=== PATIENT | female | born 1970 | race Caucasian/White ===

== ENCOUNTER 2016-05-06 20:29 | Emergency (ER) | payer SELFPAY ==
[~2016-05-06] VITALS: Ht 167.6 cm; Wt 74.8 kg
[~2016-05-06 20:29] MED LIST: ADVIL200 M2 ORAL; ALBUTEROL2.5 MG/3 M HHN; ALPRAZOLAM0.25 MG ORAL; IBUPROFEN600 MG ORAL; LEVAQUIN750 MG ORAL; NKM; NORCO 5-325 TA1 EACH ORAL; PERCOCET1 TAB ORAL; PROAIR HFA8.5 GM INH; PROMETHAZINE V237 ML ORAL; REGLAN10 MG ORAL; ROBITUSSIN100 MG/52 ORAL
[2016-05-06 21:17] VITALS: BP 142/87
[2016-05-06 21:52] VITALS: BP 142/87
--- NOTE | 2016-05-06 22:56 | Emergency Room Report ---
History of Present Illness General Chief Complaint: Chest Pain Source: Patient Present Illness HPI 45-year-old female presents ED complaining of chest pain or shortness of breath x3 days. Patient states she feels short of breath while at rest. Denies any chest pain at this time. Denies any history of high blood pressure diabetes. Denies smoking. Denies any cough. Patient has sensations in her lips and her hands. Denies any slurred speech or facial droop. Denies any leg or motor weakness. Patient states that she did have breast implant surgery done at another hospital and is feeling pain in her left lung. No other aggravating or relieving factors. Denies any other associated symptoms Allergies: Coded Allergies: PENICILLINS (Verified Allergy, Intermediate, TACHYCARDIA, 03/30/16) Patient History Past Medical History: asthma Past Surgical History: other - breast implants Pertinent Family History: none Social History: Denies: alcohol use, drug use, smoking Now: No Immunizations: UTD Reviewed Nursing Documentation: PMH: Agreed, PSxH: Agreed Nursing Documentation-PMH Past Medical History: No Stated History Hx Cardiac Problems: No - PNA Hx Asthma: Yes Review of Systems All Other Systems: negative except mentioned in HPI Physical Exam Vital Signs Date Time Temp Pulse Resp B/P Pulse Ox O2 Delivery O2 Flow Rate FiO2 05/06/16 20:38 98.1 83 15 145/90 98 Room Air Sp02 EP Interpretation: reviewed, normal General Appearance: no apparent distress, alert, GCS 15, non-toxic Head: normocephalic, atraumatic Eyes: bilateral eye PERRL, bilateral eye normal inspection ENT: hearing grossly normal, normal pharynx, no angioedema, normal voice Neck: full range of motion, supple/symm/no masses Respiratory: chest non-tender, lungs clear, normal breath sounds, speaking full sentences Cardiovascular #1: regular rate, rhythm, no edema Cardiovascular #2: 2+ carotid (R), 2+ carotid (L), 2+ radial (R), 2+ radial (L) , 2+ dorsalis pedis (R), 2+ dorsalis pedis (L) Gastrointestinal: normal bowel sounds, non tender, soft, non-distended, no guarding, no rebound Rectal: deferred Genitourinary: normal inspection, no CVA tenderness Musculoskeletal: back normal, gait/station normal, normal range of motion, non- tender Neurologic: alert, oriented x3, responsive, motor strength/tone normal, sensory intact, speech normal Psychiatric: judgement/insight normal, memory normal, mood/affect normal, no suicidal/homicidal ideation Reflexes: 3+ bicep (R), 3+ bicep (L), 3+ tricep (R), 3+ tricep (L), 3+ knee (R) , 3+ knee (L) Skin: normal color, no rash, warm/dry, well hydrated Lymphatic: no adenopathy Medical Decision Making Diagnostic Impression: Primary Impression: Chest pain Qualified Codes: R07.9 - Chest pain, unspecified Additional Impression: Anxiety attack ER Course 45-year-old female presents ED complaining of subjective chest pain or shortness of breath x3 days Differential-pneumonia, arrhythmia, anxiety Patient placed on stretcher. After initial history and physical I ordered chest x-ray and EKG Chest x-ray-no acute process EKG-no acute ischemic changes Patient is stable vitals, oxygenation 100% on room air. No signs of distress on evaluation. Reassurance given to the patient. Patient has been here previously times in the past but has history of anxiety. I evaluated this patient in the past as well. Patient always presents with multiple vague complaints. Patient has no risk factors which are concerning for cardiac disease Explained to patient that if she is having trouble with silicon implants from her surgery she should followup with her surgeon as outpatient. Diagnosis-chest pain, anxiety attack stable and discharged to home. Followup with PMD. Return to ED if symptoms recur or worsen EKG Diagnostic Results Rate: normal Rhythm: NSR ST Segments: no acute changes ASA given to the pt in ED: No Rhythm Strip Diag. Results EP Interpretation: yes Rhythm: NSR, no PVC's, no ectopy Chest X-Ray Diagnostic Results EP Interpretation: Yes Findings: no consolidation, no effusion, no pneumothorax, no acute cardiopulmonary disease Number of Views: 1 Last Vital Signs Date Time Temp Pulse Resp B/P Pulse Ox O2 Delivery O2 Flow Rate FiO2 05/06/16 21:52 98.0 14 142/87 98 Room Air 05/06/16 21:51 86 Status: improved Disposition: HOME, SELF-CARE Condition: Stable Referrals: NOT CHOSEN IPA/,REFERRING (PCP) Patient Instructions: Nonspecific Chest Pain CHUY WALTERS M.D. May 06, 2016 22:56
--- NOTE | 2016-05-07 12:50 | Diagnostic Imaging Report ---
Indication: Chest pain Technique: One view of the chest Comparison: 07/09/2014 Findings: Lungs and pleural space are clear. Heart size is normal Impression: Negative This agrees with the preliminary interpretation provided by the emergency room physician
--- NOTE | 2016-05-11 20:27 | Cardiology Report ---
APPROVED REPORT EKG Measurement Heart [id number] Normal sinus rhythm Low voltage QRS Cannot rule out Anterior infarct, age undetermined Abnormal ECG
== END 2016-05-06 21:53 | disposition home or self-care (01) ==
LOC: EMR 21:19
DX: R07.9 Chest pain, unspecified (principal); F41.9 Anxiety disorder, unspecified; J45.909 Unspecified asthma, uncomplicated; Z88.0 Allergy status to penicillin
CPT/HCPCS: 71010; 93005; 99283

== ENCOUNTER 2016-07-27 22:01 | Emergency (ER) | payer MEDICAID ==
[~2016-07-27] VITALS: Ht 154.9 cm; Wt 59.0 kg
[2016-07-27 22:20] VITALS: BP 137/86
[2016-07-27] MEDS ORDERED: ATIVAN1 MG ORAL (22:27)
--- NOTE | 2016-07-27 22:27 | Emergency Room Report ---
History of Present Illness General Chief Complaint: General Complaint Source: Patient, Family Member Present Illness HPI This is a 45-year-old female with history anxiety. She presents with chief complaint of chest pain facial numbness body numbness. Onset tonight. She found out that her mom just this afternoon. She's been crying. No fever or chills. No nausea vomiting. Has shortness of breath. No other complaint. Allergies: Coded Allergies: PENICILLINS (Verified Allergy, Intermediate, TACHYCARDIA, 03/30/16) Patient History Past Medical History: see triage record, old chart reviewed Past Surgical History: other Pertinent Family History: none Social History: Denies: smoking Last Menstrual Period: Menopause Now: No Immunizations: other Reviewed Nursing Documentation: PMH: Agreed, PSxH: Agreed Nursing Documentation-PMH Past Medical History: No History, Except For Hx Cardiac Problems: No - PNA Hx Asthma: Yes Review of Systems Eye: Denies: blurred vision, eye pain ENT: Denies: ear pain, nose congestion, throat swelling Respiratory: Reports: shortness of breath, Denies: cough Cardiovascular: Reports: chest pain, Denies: palpitations Gastrointestinal: Denies: abdominal pain, diarrhea, nausea, vomiting Musculoskeletal: Denies: back pain, joint pain Skin: Denies: rash Neurological: Denies: headache, numbness Endocrine: Denies: increased thirst, increased urine Hematologic/Lymphatic: Denies: easy bruising All Other Systems: negative except mentioned in HPI Physical Exam Vital Signs Date Time Temp Pulse Resp B/P Pulse Ox O2 Delivery O2 Flow Rate FiO2 07/27/16 22:09 97.9 109 19 137/86 100 Room Air vital is unremarkable Sp02 EP Interpretation: reviewed, normal General Appearance: well appearing, alert, other - Crying Head: normocephalic, atraumatic Eyes: bilateral eye EOMI, bilateral eye PERRL ENT: hearing grossly normal, normal pharynx Neck: full range of motion, supple, no meningismus Respiratory: chest non-tender, lungs clear, normal breath sounds Cardiovascular #1: regular rate, rhythm, no murmur Gastrointestinal: normal bowel sounds, non tender, no mass, no organomegaly, no bruit, non-distended Musculoskeletal: back normal, gait/station normal, normal range of motion Psychiatric: mood/affect normal Skin: warm/dry Medical Decision Making Diagnostic Impression: Primary Impression: Anxiety attack Additional Impression: Acute stress reaction ER Course Patient presents with symptoms of acute anxiety/stress response. No evidence of ACS, PE, dissection. We'll discharge home. Better after Ativan. Last Vital Signs Date Time Temp Pulse Resp B/P Pulse Ox O2 Delivery O2 Flow Rate FiO2 07/27/16 22:20 97.9 89 19 137/86 100 Room Air Status: improved Disposition: HOME, SELF-CARE Condition: Stable Scripts Lorazepam* (ATIVAN*) 1 Mg Tablet 1 MG ORAL THREE TIMES A DAY for stress, #21 TAB Prov: KATELYN VELÁZQUEZ M.D. 07/27/16 Additional Instructions: Followup with your Dr. in 7 days. Return if symptom worsen. KATELYN VELÁZQUEZ M.D. Jul 27, 2016 22:27
[2016-07-27] MEDS ORDERED: LORazepam Inj 2mg/ml 1ml IM ONE (22:30)
[2016-07-27 22:50] VITALS: BP 137/86
== END 2016-07-27 22:50 | disposition home or self-care (01) ==
LOC: EMR 22:29
DX: F41.9 Anxiety disorder, unspecified (principal); F43.9 Reaction to severe stress, unspecified; J45.909 Unspecified asthma, uncomplicated; Z88.0 Allergy status to penicillin
CPT/HCPCS: 96372; 99283

== ENCOUNTER 2016-10-14 20:40 | Inpatient (IN) | payer MEDICAID ==
[~2016-10-14] VITALS: Ht 154.9 cm; Wt 65.8 kg
[~2016-10-14 20:40] MED LIST changes: +ATIVAN1 MG ORAL
[2016-10-14] MEDS ORDERED: Morphine Sulfate 4mg/ml Inj IVP ONE (21:30)
[2016-10-14 22:02] LABS: EOSINOPHILS % (AUTO) 1.2 % (0.0-3.0); LYMPHOCYTES % (AUTO) 38.4 % (20.0-45.0); MEAN CORPUSCULAR HEMOGLOBIN 31.6 PG (27.0-31.0); MEAN CORPUSCULAR HGB CONC 32.9 G/DL (32.0-36.0); MEAN CORPUSCULAR VOLUME 96 FL (80-99); MEAN PLATELET VOLUME 5.5 FL (6.5-10.1); MONOCYTES % (AUTO) 9.6 % (1.0-10.0); NEUTROPHILS % (AUTO) 49.7 % (45.0-75.0); PLATELET COUNT 327 K/UL (150-450); RED BLOOD COUNT 4.59 M/UL (4.20-5.40); RED CELL DISTRIBUTION WIDTH 12.3 % (11.6-14.8)
[2016-10-14 22:20] LABS: ALANINE AMINOTRANSFERASE 15 U/L (3-33); ALBUMIN/GLOBULIN RATIO 1.4 (1.0-2.7); ANION GAP 9 (5-15); ASPARTATE AMINO TRANSFERASE 18 U/L (5-40); CARBON DIOXIDE 30 mEQ/L (20-30); CHLORIDE 100 mEQ/L (98-107); CREATININE 0.8 mg/dL (0.5-0.9); GLOMERULAR FILTRATION RATE > 60 mL/min (>60); HEMOLYSIS 8; LIPASE 27 U/L (< 60); POTASSIUM 4.1 mEQ/L (3.4-4.9); SODIUM 139 mEQ/L (135-145); TOTAL PROTEIN 6.8 g/dL (6.6-8.7)
[2016-10-15] VITALS (13 sets, daily range): BP systolic 106–149; BP diastolic 66–87
[2016-10-15] MEDS ORDERED: Morphine Sulfate 4mg/ml Inj IVP PRN (02:15)
--- NOTE | 2016-10-15 02:27 | Emergency Room Report ---
History of Present Illness General Chief Complaint: Abdominal Pain Source: Patient Present Illness HPI 46-year-old female presents ED complaining of abdominal pain. The pain for last 3 days, periumbilical radiating to right lower quadrant. 8/10. Sharp. Notes nausea, denies vomiting. Denies chest pain or shortness of breath. Denies fevers or chills. No other aggravating or relieving factors. Denies any other associated symptoms Allergies: Coded Allergies: PENICILLINS (Verified Allergy, Intermediate, TACHYCARDIA, 03/30/16) Patient History Past Medical History: asthma Past Surgical History: none Pertinent Family History: none Social History: Denies: alcohol use, drug use, smoking Last Menstrual Period: feb 2016 Now: No Immunizations: UTD Reviewed Nursing Documentation: PMH: Agreed, PSxH: Agreed Nursing Documentation-PMH Past Medical History: No Stated History Hx Cardiac Problems: No - PNA Hx Asthma: Yes Review of Systems All Other Systems: negative except mentioned in HPI Physical Exam Vital Signs Date Time Temp Pulse Resp B/P Pulse Ox O2 Delivery O2 Flow Rate FiO2 10/14/16 21:05 98.1 75 18 120/76 97 Room Air Sp02 EP Interpretation: reviewed, normal General Appearance: no apparent distress, alert, GCS 15, non-toxic Head: normocephalic, atraumatic Eyes: bilateral eye PERRL, bilateral eye normal inspection ENT: hearing grossly normal, normal pharynx, no angioedema, normal voice Neck: full range of motion, supple/symm/no masses Respiratory: chest non-tender, lungs clear, normal breath sounds, speaking full sentences Cardiovascular #1: regular rate, rhythm, no edema Cardiovascular #2: 2+ carotid (R), 2+ carotid (L), 2+ radial (R), 2+ radial (L) , 2+ dorsalis pedis (R), 2+ dorsalis pedis (L) Gastrointestinal: normal bowel sounds, soft, non-distended, no guarding, no rebound, tenderness - RLQ Rectal: deferred Genitourinary: normal inspection, no CVA tenderness Musculoskeletal: back normal, gait/station normal, normal range of motion, non- tender Neurologic: alert, oriented x3, responsive, motor strength/tone normal, sensory intact, speech normal Psychiatric: judgement/insight normal, memory normal, mood/affect normal, no suicidal/homicidal ideation Reflexes: 3+ bicep (R), 3+ bicep (L), 3+ tricep (R), 3+ tricep (L), 3+ knee (R) , 3+ knee (L) Skin: normal color, no rash, warm/dry, well hydrated Lymphatic: no adenopathy Medical Decision Making Diagnostic Impression: Primary Impression: Right lower quadrant abdominal pain ER Course Hospital Course 46-year-old female presents ED complaining of right lower quadrant pain with nausea Differential diagnoses include: BPH, cystitis, pyelonephritis, kidney stone Clinical course Patient placed on stretcher. teletypesetter monitor. After initial history and physical I ordered labs, IV fluids, UA, pain medication and CT scan Labs - no leukocytosis, Hb/Hct stable, electrolytes ok CT abdomen and pelvis - prominence of the appendix with haziness surrounding the appendix Given the CT findings with right lower quadrant pain I believe patient should be admitted for serial abdominal exams and reassessment Case discussed with Dr. Munoz and he agreed to consult Case discussed with Dr. Rivera and he agreed to accept the patient to his service for further care and support I feel this is a highly complex case requiring extensive working including EKG/ Rhythm strip, Xray/CT/US, Blood/urine lab work, repeat exams while in ED, and administration of strong opiates/narcotics for pain control, admission to hospital or close patient follow up. Diagnosis - right lower quadrant lower abdominal pain Patient admitted to floor in serious condition Labs Test 10/14/16 21:40 White Blood Count 9.0 K/UL (4.8-10.8) Red Blood Count 4.59 M/UL (4.20-5.40) Hemoglobin 14.5 G/DL (12.0-16.0) Hematocrit 44.0 % (37.0-47.0) Mean Corpuscular Volume 96 FL (80-99) Mean Corpuscular Hemoglobin 31.6 PG (27.0-31.0) Mean Corpuscular Hemoglobin Concent 32.9 G/DL (32.0-36.0) Red Cell Distribution Width 12.3 % (11.6-14.8) Platelet Count 327 K/UL (150-450) Mean Platelet Volume 5.5 FL (6.5-10.1) Neutrophils (%) (Auto) 49.7 % (45.0-75.0) Lymphocytes (%) (Auto) 38.4 % (20.0-45.0) Monocytes (%) (Auto) 9.6 % (1.0-10.0) Eosinophils (%) (Auto) 1.2 % (0.0-3.0) Basophils (%) (Auto) 1.0 % (0.0-2.0) Sodium Level 139 mEQ/L (135-145) Potassium Level 4.1 mEQ/L (3.4-4.9) Chloride Level 100 mEQ/L (98-107) Carbon Dioxide Level 30 mEQ/L (20-30) Anion Gap 9 (5-15) Blood Urea Nitrogen 15 mg/dL (7-23) Creatinine 0.8 mg/dL (0.5-0.9) Estimat Glomerular Filtration Rate > 60 mL/min (>60) Glucose Level 106 mg/dL (74-106) Calcium Level 9.0 mg/dL (8.6-10.2) Total Bilirubin < 0.2 mg/dL (0.0-1.2) Aspartate Amino Transf (AST/SGOT) 18 U/L (5-40) Alanine Aminotransferase (ALT/SGPT) 15 U/L (3-33) Alkaline Phosphatase 97 U/L (35-104) Total Protein 6.8 g/dL (6.6-8.7) Albumin 4.0 g/dL (3.5-5.2) Globulin 2.8 g/dL Albumin/Globulin Ratio 1.4 (1.0-2.7) Lipase 27 U/L (< 60) Human Chorionic Gonadotropin, Qual Negative CT/MRI/US Diagnostic Results CT/MRI/US Diagnostic Results : Imaging Test Ordered: CT A/P Impression The appendix demonstrates mild prominence as compared to prior examination from 10/27/12 and there is questionable lilia- appendiceal haziness Last Vital Signs Date Time Temp Pulse Resp B/P Pulse Ox O2 Delivery O2 Flow Rate FiO2 10/14/16 21:05 98.1 75 18 120/76 97 Room Air Status: improved Disposition: ADMITTED INPATIENT Condition: Serious Referrals: NOT CHOSEN NGA/,REFERRING (PCP) CHUY WALTERS M.D. Oct 15, 2016 02:27
[2016-10-15] MEDS ORDERED: mylanta (02:32)
[2016-10-15] MEDS ORDERED: Nitroglycerin Subl 0.4mg tab (Bottle Of 25) SL PRN (05:45)
[2016-10-15] MEDS ORDERED: Miralax 17gm pkt ORAL PRN (05:45)
[2016-10-15] MEDS ORDERED: Mylanta II UD 30ml ORAL PRN (05:45)
[2016-10-15 06:00] LABS: APPEARANCE,URINE CLEAR; KETONES,URINE NEGATIVE (NEGATIVE); LEUKOCYTE ESTERASE ,URINE NEGATIVE (NEGATIVE); NITRITE,URINE NEGATIVE (NEGATIVE); PH,URINE 5 (4.5-8.0); PROTEIN,URINE NEGATIVE (NEGATIVE); UROBILINOGEN,URINE NORMAL MG/DL (0.0-1.0)
[2016-10-15 06:01] LABS: BACTERIA,URINE FEW /HPF; SQUAMOUS EPITHELIAL CELL,UR FEW /LPF (NONE/OCC); WBC,URINE 0-2 /HPF (0 - 2)
[2016-10-15] MEDS: D5 1/2NS 1,000 ML IV SCH ×2 (06:45→20:25)
[2016-10-15] MEDS ORDERED: Heparin 5000 units/ml inj SUBQ SCH (09:00)
--- NOTE | 2016-10-15 09:02 | Consultation ---
Consult Note Consult Note ID CONSULT: Dict# [id number] Assessment/Plan ASSESSMENT: 46 y/o female with: // Abdominal pain / possible appendicitis - surgical eval pending - CT A/P (prelim): prominence of the appendix with haziness surrounding the appendix // Afebrile without leukocytosis // PCN allergy - rash // Full Code PLAN: - start empiric cefepime, flagyl d# 1 - surgical eval - monitor CBC, temperatures - monitor BMP Thanks! Will follow ALEXA LÓPEZ Oct 15, 2016 09:02
--- NOTE | 2016-10-15 09:03 | Pre-Procedure Note/Attestation ---
Pre-Procedure Note/Attestation Complete Prior to Procedure Planned Procedure: not applicable Procedure Narrative: lap appy Indications for Procedure Pre-Operative Diagnosis: acute appendicitis Attestation I attest that I discussed the nature of the procedure; its benefits; risks and complications; and alternatives (and the risks and benefits of such alternatives ), prior to the procedure, with the patient (or the patient's legal operations support representative). I attest that, if there was a reasonable possibility of needing a blood transfusion, the patient (or the patient's legal operations support representative) was given the [facility] standardized written summary, pursuant to the [place]ung Reynaldo Blood Safety Act ([place] Health and Safety Code # 1645, as amended). I attest that I re-evaluated the patient just prior to the surgery and that there has been no change in the patient's H&P, except as documented below: Michael Hartley Oct 15, 2016 09:03
--- NOTE | 2016-10-15 09:03 | Consultation ---
History of Present Illness General Date patient seen: Oct 15, 2016 Chief Complaint: Abdominal Pain Present Illness HPI 46F presented to ED with complaints of worsening RLQ abdominal pain x 4 days. As per patient, she was in her normal state of health until 4 days ago when she first began to note some vague periumbilical pain. The pain subsequently migrated to the RLQ. Pain described as cramping 8/10 pain. Pain associated with nausea but no emesis. pain improved with narcotics and worse with ambulation/movement. Currently states pain mildly improved because of pain medication but still notes pain. has not had prior episodes similar to this. in ED had labs which were normal, CT scan which demonstrated mild irregularity in mid to distal appendix, and exam with RLQ tenderness. Surgery called to evaluate Allergies: Coded Allergies: PENICILLINS (Verified Allergy, Intermediate, TACHYCARDIA, 03/30/16) Medication History Scheduled Albuterol Sulfate* (Proair Hfa*), 2 PUFFS INH Q6H Lorazepam* (Ativan*), 1 MG ORAL THREE TIMES A DAY Miscellaneous Medications [mylanta], (Reported) Patient History History Provided By: Patient Healthcare decision maker Resuscitation status Full Code Advanced Directive on File Yes Past Medical/Surgical History Past Medical/Surgical History: (1) History of abdominoplasty (2) History of breast augmentation (3) Pneumonia (4) Cough (5) Cough (6) Upper respiratory infection (7) Upper respiratory infection (8) Upper respiratory infection (9) Headache (10) Chest pain (11) Anxiety attack (12) Right lower quadrant abdominal pain Review of Systems Constitutional: Denies: chills, fever, malaise, no symptoms, other, see HPI, sweats, weakness Eye: Denies: acuity changes, blurred vision, discharge, double vision, eye pain , no symptoms, nose congestion, nose pain, other, see HPI, tearing ENT: Denies: ear discharge, ear pain, hearing loss, mouth pain, nasal discharge , no symptoms, nose congestion, nose pain, other, see HPI, throat pain, throat swelling Respiratory: Denies: [place], cough, no symptoms, orthopnea, other, see HPI, shortness of breath, sputum, stridor, wheezing Cardiovascular: Denies: PND, chest pain, edema, no symptoms, other, palpitations, see HPI, syncope Gastrointestinal: Reports: abdominal pain, nausea Genitourinary: Denies: discharge, dysuria, frequency, hematuria, incontinence, no symptoms, other, pain, retention, see HPI, urgency, vag bleed/dc Musculoskeletal: Denies: back pain, gout, joint pain, joint swelling, muscle pain, muscle stiffness, no symptoms, other, see HPI Skin: Denies: change in color, change in hair/nails, dryness, lesions, no symptoms, other, rash, see HPI Psychiatric: Denies: HI, SI, anxiety, depressed feelings, emotional problems, hallucinations, no symptoms, other, prior hx, see HPI Neurological: Denies: dizziness, focal weakness, headache, no symptoms, numbness, other, paresthesia, see HPI, seizure, syncope, tingling, tremors Endocrine: Denies: excessive sweating, flushing, increased thirst, increased urine, intolerance to temperature, no symptoms, other, see HPI, unexplained weight loss Hematologic/Lymphatic: Denies: anemia, blood clots, diathesis, easy bleeding, easy bruising, no symptoms, other, see HPI, swollen glands Physical Exam General Appearance: alert Lines, tubes and drains: peripheral HEENT: mucous membranes moist, PERRL Neck: normal inspection Respiratory/Chest: normal breath sounds, no respiratory distress, no accessory muscle use Cardiovascular/Chest: normal peripheral pulses, normal rate, regular rhythm Abdomen: soft, guarding, rebound, tender, other - soft, tenderness in RLQ with rebound and voluntary guarding, prior scars well healed Extremities: normal inspection Skin Exam: warm/dry Neurologic: alert, oriented x 3 Last 24 Hour Vital Signs Date Time Temp Pulse Resp B/P Pulse Ox O2 Delivery O2 Flow Rate FiO2 10/15/16 03:58 96.4 59 18 120/80 99 Room Air 10/15/16 03:52 84 16 116/65 98 Room Air 10/15/16 03:00 98.0 84 18 118/66 98 Room Air 10/14/16 21:05 98.1 75 18 120/76 97 Room Air Intake and Output 10/14/16 10/15/16 19:00 07:00 Intake Total 250 ml Output Total 600 ml Balance -350 ml Intake IV Total 250 ml Output Urine Total 600 ml # Voids 2 Laboratory Tests Test 10/14/16 21:40 10/15/16 05:30 White Blood Count 9.0 K/UL (4.8-10.8) Red Blood Count 4.59 M/UL (4.20-5.40) Hemoglobin 14.5 G/DL (12.0-16.0) Hematocrit 44.0 % (37.0-47.0) Mean Corpuscular Volume 96 FL (80-99) Mean Corpuscular Hemoglobin 31.6 PG (27.0-31.0) H Mean Corpuscular Hemoglobin Concent 32.9 G/DL (32.0-36.0) Red Cell Distribution Width 12.3 % (11.6-14.8) Platelet Count 327 K/UL (150-450) Mean Platelet Volume 5.5 FL (6.5-10.1) L Neutrophils (%) (Auto) 49.7 % (45.0-75.0) Lymphocytes (%) (Auto) 38.4 % (20.0-45.0) Monocytes (%) (Auto) 9.6 % (1.0-10.0) Eosinophils (%) (Auto) 1.2 % (0.0-3.0) Basophils (%) (Auto) 1.0 % (0.0-2.0) Sodium Level 139 mEQ/L (135-145) Potassium Level 4.1 mEQ/L (3.4-4.9) Chloride Level 100 mEQ/L (98-107) Carbon Dioxide Level 30 mEQ/L (20-30) Anion Gap 9 (5-15) Blood Urea Nitrogen 15 mg/dL (7-23) Creatinine 0.8 mg/dL (0.5-0.9) Estimat Glomerular Filtration Rate > 60 mL/min (>60) Glucose Level 106 mg/dL (74-106) Calcium Level 9.0 mg/dL (8.6-10.2) Total Bilirubin < 0.2 mg/dL (0.0-1.2) Aspartate Amino Transf (AST/SGOT) 18 U/L (5-40) Alanine Aminotransferase (ALT/SGPT) 15 U/L (3-33) Alkaline Phosphatase 97 U/L (35-104) Total Protein 6.8 g/dL (6.6-8.7) Albumin 4.0 g/dL (3.5-5.2) Globulin 2.8 g/dL Albumin/Globulin Ratio 1.4 (1.0-2.7) Lipase 27 U/L (< 60) Human Chorionic Gonadotropin, Qual Negative Urine Color Pale yellow Urine Appearance Clear Urine pH 5 (4.5-8.0) Urine Specific [place] 1.015 (1.005-1.035) Urine Protein Negative (NEGATIVE) Urine Glucose (UA) Negative (NEGATIVE) Urine Ketones Negative (NEGATIVE) Urine Occult Blood 2+ (NEGATIVE) H Urine Nitrite Negative (NEGATIVE) Urine Bilirubin Negative (NEGATIVE) Urine Urobilinogen Normal MG/DL (0.0-1.0) Urine Leukocyte Esterase Negative (NEGATIVE) Urine RBC 5-10 /HPF (0 - 2) H Urine WBC 0-2 /HPF (0 - 2) Urine Squamous Epithelial Cells Few /LPF (NONE/OCC) Urine Bacteria Few /HPF (NONE) Urine HCG, Qualitative Negative Height (Feet): 5 Height (Inches): 1.00 Weight (Pounds): 145 Medications Current Medications Medications (Trade) Dose Ordered Sig/Sal Route PRN Reason Start Time Stop Time Status Last Admin Dose Admin Acetaminophen (Tylenol) 650 mg Q4H PRN ORAL fever 10/15/16 05:45 11/14/16 05:44 Al Hydroxide/Mg Hydroxide (Mylanta II) 30 ml Q6H PRN ORAL dyspepsia 10/15/16 05:45 11/14/16 05:44 Dextrose (Dextrose 50%) STAT PRN IV Hypoglycemia 10/15/16 05:45 11/14/16 05:44 Dextrose/Sodium Chloride (D5 0.45% NS) 1,000 ml @ 75 mls/hr [id number] IV 10/15/16 06:15 11/14/16 06:14 10/15/16 06:45 Diphenhydramine HCl (Benadryl) 25 mg Q6H PRN ORAL Itching/Pruritis 10/15/16 05:45 11/14/16 05:44 Heparin Sodium (Porcine) (Heparin 5000 units/ml) 5,000 units EVERY 12 HOURS SUBQ 10/15/16 09:00 11/14/16 08:59 Morphine Sulfate (Morphine Sulfate) 2 mg Q4H PRN IVP severe Pain (Pain Scale 7-10) 10/15/16 05:45 10/22/16 05:44 Nitroglycerin (Ntg) 0.4 mg Q5M X 3 DOSES PRN SL Prn Chest Pain 10/15/16 05:45 11/14/16 05:44 Ondansetron HCl (Zofran) 4 mg Q6H PRN IVP Nausea & Vomiting 10/15/16 05:45 11/14/16 05:44 Pantoprazole (Protonix) 40 mg DAILY IVP 10/15/16 09:00 11/14/16 08:59 Polyethylene Glycol (Miralax) 17 gm HSPRN PRN ORAL Constipation 10/15/16 05:45 11/14/16 05:44 Temazepam (Restoril) 15 mg HSPRN PRN ORAL Insomnia 10/15/16 05:45 10/22/16 05:44 Assessment/Plan Problem List: (1) Right lower quadrant abdominal pain Assessment & Plan: 46F with RLQ abdominal pain. Afebrile, HD stable, no leukocytosis, CT scan with irregularity at mid to distal appendix with some surrounding stranding. Exam with focal RLQ tenderness with rebound and voluntary guarding. Exam consistent with acute appendicitis but somewhat atypical CT findings. Wound anticipate leukocytosis and more definitive CT findings given 4 day duration. Discussed these findings with patient. Explained possibility of appendicitis. Discussed surgical options with patient and possibility of negative surgical findings. After discussion patient expressed desire for diagnostic laparoscopy and appendectomy. NPO IV fluids IV Abx Consent To OR for lap appy today ICD Codes: R10.31 - Right lower quadrant pain SNOMED: [id number] Status: stable Michael Hartley Oct 15, 2016 09:03
[2016-10-15] MEDS: Pantoprazole Inj IVP SCH (09:25)
[2016-10-15 09:57] LABS: INR 0.9 (0.9-1.1); PROTHROMBIN TIME 9.9 SEC (9.30-11.50)
[2016-10-15] MEDS: metroNIDAZOLE 500mg 100 ML IVPB SCH ×3 (10:36→21:05)
--- NOTE | 2016-10-15 11:22 | Consultation ---
History of Present Illness General Date patient seen: Oct 15, 2016 Time patient seen: 10:00 Chief Complaint: Abdominal Pain Referring physician: dr Rivera Reason for Consultation: inpatient management Present Illness HPI 46-year-old female without significant past medical history presented to ED complaining of abdominal pain for the last 3 days, pain periumbilical, radiating to right lower quadrant. pain quantified as 8/10 on a scale 1 to 10, sharp. reported nausea, but denied vomiting. denied chest pain or shortness of breath. denied fevers or chills. Workup in ED showed no leukocytosis stable HH, lytes, renal parameters, LFT CT A/P with irregularity at mid to distal appendix with some surrounding stranding. test negative patient was admitted for possible acute appy Allergies: Coded Allergies: PENICILLINS (Verified Allergy, Intermediate, TACHYCARDIA, 03/30/16) Medication History Scheduled Albuterol Sulfate* (Proair Hfa*), 2 PUFFS INH Q6H Lorazepam* (Ativan*), 1 MG ORAL THREE TIMES A DAY Miscellaneous Medications [mylanta], (Reported) Patient History History Provided By: Patient Healthcare decision maker Resuscitation status Full Code Advanced Directive on File Yes Review of Systems Constitutional: Reports: no symptoms Eye: Reports: no symptoms ENT: Reports: no symptoms Respiratory: Reports: no symptoms Cardiovascular: Reports: no symptoms Gastrointestinal: Reports: see HPI Genitourinary: Reports: no symptoms Musculoskeletal: Reports: no symptoms Skin: Reports: no symptoms Neurological: Reports: no symptoms Endocrine: Reports: no symptoms Hematologic/Lymphatic: Reports: no symptoms Physical Exam General Appearance: WD/WN, no apparent distress, alert Lines, tubes and drains: peripheral HEENT: normocephalic, atraumatic, anicteric, PERRL Neck: non-tender Respiratory/Chest: lungs clear, normal breath sounds, no respiratory distress, no accessory muscle use Cardiovascular/Chest: normal peripheral pulses, normal rate, regular rhythm, no JVD Abdomen: normal bowel sounds, soft - RLQ tenderness with guarding Extremities: normal range of motion, non-tender, no calf tenderness Skin Exam: warm/dry 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, no motor/sensory deficits, alert, oriented x 3 Musculoskeletal: normal muscle bulk Last 24 Hour Vital Signs Date Time Temp Pulse Resp B/P Pulse Ox O2 Delivery O2 Flow Rate FiO2 10/15/16 08:00 97.5 67 20 106/74 98 Room Air 10/15/16 03:58 96.4 59 18 120/80 99 Room Air 10/15/16 03:52 84 16 116/65 98 Room Air 10/15/16 03:00 98.0 84 18 118/66 98 Room Air 10/14/16 21:05 98.1 75 18 120/76 97 Room Air Intake and Output 10/14/16 10/15/16 19:00 07:00 Intake Total 250 ml Output Total 600 ml Balance -350 ml Intake IV Total 250 ml Output Urine Total 600 ml # Voids 2 Laboratory Tests Test 10/14/16 21:40 10/15/16 05:30 10/15/16 09:35 White Blood Count 9.0 K/UL (4.8-10.8) Red Blood Count 4.59 M/UL (4.20-5.40) Hemoglobin 14.5 G/DL (12.0-16.0) Hematocrit 44.0 % (37.0-47.0) Mean Corpuscular Volume 96 FL (80-99) Mean Corpuscular Hemoglobin 31.6 PG (27.0-31.0) H Mean Corpuscular Hemoglobin Concent 32.9 G/DL (32.0-36.0) Red Cell Distribution Width 12.3 % (11.6-14.8) Platelet Count 327 K/UL (150-450) Mean Platelet Volume 5.5 FL (6.5-10.1) L Neutrophils (%) (Auto) 49.7 % (45.0-75.0) Lymphocytes (%) (Auto) 38.4 % (20.0-45.0) Monocytes (%) (Auto) 9.6 % (1.0-10.0) Eosinophils (%) (Auto) 1.2 % (0.0-3.0) Basophils (%) (Auto) 1.0 % (0.0-2.0) Sodium Level 139 mEQ/L (135-145) Potassium Level 4.1 mEQ/L (3.4-4.9) Chloride Level 100 mEQ/L (98-107) Carbon Dioxide Level 30 mEQ/L (20-30) Anion Gap 9 (5-15) Blood Urea Nitrogen 15 mg/dL (7-23) Creatinine 0.8 mg/dL (0.5-0.9) Estimat Glomerular Filtration Rate > 60 mL/min (>60) Glucose Level 106 mg/dL (74-106) Calcium Level 9.0 mg/dL (8.6-10.2) Total Bilirubin < 0.2 mg/dL (0.0-1.2) Aspartate Amino Transf (AST/SGOT) 18 U/L (5-40) Alanine Aminotransferase (ALT/SGPT) 15 U/L (3-33) Alkaline Phosphatase 97 U/L (35-104) Total Protein 6.8 g/dL (6.6-8.7) Albumin 4.0 g/dL (3.5-5.2) Globulin 2.8 g/dL Albumin/Globulin Ratio 1.4 (1.0-2.7) Lipase 27 U/L (< 60) Human Chorionic Gonadotropin, Qual Negative Urine Color Pale yellow Urine Appearance Clear Urine pH 5 (4.5-8.0) Urine Specific [place] 1.015 (1.005-1.035) Urine Protein Negative (NEGATIVE) Urine Glucose (UA) Negative (NEGATIVE) Urine Ketones Negative (NEGATIVE) Urine Occult Blood 2+ (NEGATIVE) H Urine Nitrite Negative (NEGATIVE) Urine Bilirubin Negative (NEGATIVE) Urine Urobilinogen Normal MG/DL (0.0-1.0) Urine Leukocyte Esterase Negative (NEGATIVE) Urine RBC 5-10 /HPF (0 - 2) H Urine WBC 0-2 /HPF (0 - 2) Urine Squamous Epithelial Cells Few /LPF (NONE/OCC) Urine Bacteria Few /HPF (NONE) Urine HCG, Qualitative Negative Prothrombin Time 9.9 SEC (9.30-11.50) Prothromb Time International Ratio 0.9 (0.9-1.1) Activated Partial Thromboplast Time 28 SEC (23-33) Height (Feet): 5 Height (Inches): 1.00 Weight (Pounds): 145 Medications Current Medications Medications (Trade) Dose Ordered Sig/Sal Route PRN Reason Start Time Stop Time Status Last Admin Dose Admin Acetaminophen (Tylenol) 650 mg Q4H PRN ORAL fever 10/15/16 05:45 11/14/16 05:44 Al Hydroxide/Mg Hydroxide (Mylanta II) 30 ml Q6H PRN ORAL dyspepsia 10/15/16 05:45 11/14/16 05:44 Cefepime HCl 2 gm/ Dextrose 110 ml @ 220 mls/hr BID@1000,2200 IVPB 10/15/16 12:30 10/22/16 12:29 Ciprofloxacin (Cipro 400mg/ 200ml premix bag) 200 ml @ 200 mls/hr Q12HR IV 10/15/16 11:30 10/22/16 11:29 Dextrose (Dextrose 50%) STAT PRN IV Hypoglycemia 10/15/16 05:45 11/14/16 05:44 Dextrose/Sodium Chloride (D5 0.45% NS) 1,000 ml @ 75 mls/hr [id number] IV 10/15/16 06:15 11/14/16 06:14 10/15/16 06:45 Diphenhydramine HCl (Benadryl) 25 mg Q6H PRN ORAL Itching/Pruritis 10/15/16 05:45 11/14/16 05:44 Metronidazole 100 ml @ 100 mls/hr Q8HR IVPB 10/15/16 10:30 10/22/16 10:29 10/15/16 10:36 Morphine Sulfate (Morphine Sulfate) 2 mg Q4H PRN IVP severe Pain (Pain Scale 7-10) 10/15/16 05:45 10/22/16 05:44 Nitroglycerin (Ntg) 0.4 mg Q5M X 3 DOSES PRN SL Prn Chest Pain 10/15/16 05:45 11/14/16 05:44 Ondansetron HCl (Zofran) 4 mg Q6H PRN IVP Nausea & Vomiting 10/15/16 05:45 11/14/16 05:44 Pantoprazole 40 mg 40 mg DAILY IVP 10/15/16 09:00 11/14/16 08:59 10/15/16 09:25 Polyethylene Glycol (Miralax) 17 gm HSPRN PRN ORAL Constipation 10/15/16 05:45 11/14/16 05:44 Temazepam (Restoril) 15 mg HSPRN PRN ORAL Insomnia 10/15/16 05:45 10/22/16 05:44 Assessment/Plan Assessment/Plan ASSESSMENT abdominal pain possible acute appy PLAN OF CARE [facility] floor NPO IVF surgery consult requested CT A/P with possible acute appy , however somewhat atypical presentation given 4 days of abdominal pain, no leuk, no fever patient had in depth discussion with surgeon and opted for surgery surgery today patient is cleared for surgery ID follows empiric abx pain management a/emetic prn case discussed and evaluated by supervising physician Meliton López)Rupali NP Oct 15, 2016 11:21
--- NOTE | 2016-10-15 11:27 | GI Initial Consult Note ---
History of Present Illness General Date patient seen: Oct 15, 2016 Time patient seen: 10:00 Reason for Hospitalization: Abdominal Pain Referring physician: PAULIE DIZA Reason for Consultation: ABDOMINAL PAIN Present Illness HPI 46-year-old female presents ED complaining of abdominal pain. The pain for last 3 days, periumbilical radiating to right lower quadrant. 8/10. Sharp. Notes nausea, denies vomiting. Denies chest pain or shortness of breath. Denies fevers or chills. No other aggravating or relieving factors. Denies any other associated symptoms GI Consult. HPI as noted above. GI consulted for abdominal pain. Pt seen on floor, awake A&Ox4 NAD with no active N/V/D. Pt consulted by surgery and scheduled for lap appy today. Resting quietly in bed. Pt presents with normal CBC, CMP. No history of endoscopic procedures. Home Meds Active Scripts Lorazepam* (ATIVAN*) 1 Mg Tablet, 1 MG ORAL THREE TIMES A DAY for stress, #21 TAB Prov:KATELYN VELÁZQUEZ M.D. 07/27/16 Albuterol Sulfate* (PROAIR HFA*) 8.5 Gm Hfa.aer.ad, 2 PUFFS INH Q6H, #8.5 GM 0 Refills Prov:ADAM HERRING D.O. 07/17/14 Reported Medications [mylanta] No Conflict Check 10/15/16 Med list reviewed/reconciled: Yes Allergies: Coded Allergies: PENICILLINS (Verified Allergy, Intermediate, TACHYCARDIA, 03/30/16) Patient History History Provided By: Patient, Medical Record PMH Narrative Past Medical History: asthma Past Surgical History: none Pertinent Family History: none Social History: Denies: alcohol use, drug use, smoking Last Menstrual Period: feb 2016 Now: No Immunizations: UTD Reviewed Nursing Documentation: PMH: Agreed, PSxH: Agreed Nursing Documentation-PMH Past Medical History: No Stated History Hx Cardiac Problems: No - PNA Hx Asthma: Yes Review of Systems All Other Systems: negative except mentioned in HPI Physical Exam Vital Signs Date Time Temp Pulse Resp B/P Pulse Ox O2 Delivery O2 Flow Rate FiO2 10/14/16 21:05 98.1 75 18 120/76 97 Room Air Sp02 EP Interpretation: reviewed Labs Laboratory Tests Test 10/14/16 21:40 10/15/16 05:30 10/15/16 09:35 White Blood Count 9.0 K/UL (4.8-10.8) Red Blood Count 4.59 M/UL (4.20-5.40) Hemoglobin 14.5 G/DL (12.0-16.0) Hematocrit 44.0 % (37.0-47.0) Mean Corpuscular Volume 96 FL (80-99) Mean Corpuscular Hemoglobin 31.6 PG (27.0-31.0) H Mean Corpuscular Hemoglobin Concent 32.9 G/DL (32.0-36.0) Red Cell Distribution Width 12.3 % (11.6-14.8) Platelet Count 327 K/UL (150-450) Mean Platelet Volume 5.5 FL (6.5-10.1) L Neutrophils (%) (Auto) 49.7 % (45.0-75.0) Lymphocytes (%) (Auto) 38.4 % (20.0-45.0) Monocytes (%) (Auto) 9.6 % (1.0-10.0) Eosinophils (%) (Auto) 1.2 % (0.0-3.0) Basophils (%) (Auto) 1.0 % (0.0-2.0) Sodium Level 139 mEQ/L (135-145) Potassium Level 4.1 mEQ/L (3.4-4.9) Chloride Level 100 mEQ/L (98-107) Carbon Dioxide Level 30 mEQ/L (20-30) Anion Gap 9 (5-15) Blood Urea Nitrogen 15 mg/dL (7-23) Creatinine 0.8 mg/dL (0.5-0.9) Estimat Glomerular Filtration Rate > 60 mL/min (>60) Glucose Level 106 mg/dL (74-106) Calcium Level 9.0 mg/dL (8.6-10.2) Total Bilirubin < 0.2 mg/dL (0.0-1.2) Aspartate Amino Transf (AST/SGOT) 18 U/L (5-40) Alanine Aminotransferase (ALT/SGPT) 15 U/L (3-33) Alkaline Phosphatase 97 U/L (35-104) Total Protein 6.8 g/dL (6.6-8.7) Albumin 4.0 g/dL (3.5-5.2) Globulin 2.8 g/dL Albumin/Globulin Ratio 1.4 (1.0-2.7) Lipase 27 U/L (< 60) Human Chorionic Gonadotropin, Qual Negative Urine Color Pale yellow Urine Appearance Clear Urine pH 5 (4.5-8.0) Urine Specific [place] 1.015 (1.005-1.035) Urine Protein Negative (NEGATIVE) Urine Glucose (UA) Negative (NEGATIVE) Urine Ketones Negative (NEGATIVE) Urine Occult Blood 2+ (NEGATIVE) H Urine Nitrite Negative (NEGATIVE) Urine Bilirubin Negative (NEGATIVE) Urine Urobilinogen Normal MG/DL (0.0-1.0) Urine Leukocyte Esterase Negative (NEGATIVE) Urine RBC 5-10 /HPF (0 - 2) H Urine WBC 0-2 /HPF (0 - 2) Urine Squamous Epithelial Cells Few /LPF (NONE/OCC) Urine Bacteria Few /HPF (NONE) Urine HCG, Qualitative Negative Prothrombin Time 9.9 SEC (9.30-11.50) Prothromb Time International Ratio 0.9 (0.9-1.1) Activated Partial Thromboplast Time 28 SEC (23-33) General Appearance: well appearing, no apparent distress, alert Head: normocephalic EENT: PERRL/EOMI, normal ENT inspection Neck: full range of motion Respiratory: normal breath sounds, no respiratory distress Cardiovascular: normal rate Gastrointestinal: soft Rectal: deferred Genitourinary: no CVA tenderness Musculoskeletal: back normal Neurologic: normal inspection, alert, oriented x3 Psychiatric: normal inspection, judgement/insight normal, memory normal Skin: normal inspection, normal color, no rash, warm/dry Lymphatic: normal inspection, no adenopathy Current Medications Current Medications Medications (Trade) Dose Ordered Sig/Sal Route PRN Reason Start Time Stop Time Status Last Admin Dose Admin Acetaminophen (Tylenol) 650 mg Q4H PRN ORAL fever 10/15/16 05:45 11/14/16 05:44 Al Hydroxide/Mg Hydroxide (Mylanta II) 30 ml Q6H PRN ORAL dyspepsia 10/15/16 05:45 11/14/16 05:44 Cefepime HCl 2 gm/ Dextrose 110 ml @ 220 mls/hr BID@1000,2200 IVPB 10/15/16 12:30 10/22/16 12:29 Ciprofloxacin (Cipro 400mg/ 200ml premix bag) 200 ml @ 200 mls/hr Q12HR IV 10/15/16 11:30 10/22/16 11:29 Dextrose (Dextrose 50%) STAT PRN IV Hypoglycemia 10/15/16 05:45 11/14/16 05:44 Dextrose/Sodium Chloride (D5 0.45% NS) 1,000 ml @ 75 mls/hr [id number] IV 10/15/16 06:15 11/14/16 06:14 10/15/16 06:45 Diphenhydramine HCl (Benadryl) 25 mg Q6H PRN ORAL Itching/Pruritis 10/15/16 05:45 11/14/16 05:44 Metronidazole 100 ml @ 100 mls/hr Q8HR IVPB 10/15/16 10:30 10/22/16 10:29 10/15/16 10:36 Morphine Sulfate (Morphine Sulfate) 2 mg Q4H PRN IVP severe Pain (Pain Scale 7-10) 10/15/16 05:45 10/22/16 05:44 Nitroglycerin (Ntg) 0.4 mg Q5M X 3 DOSES PRN SL Prn Chest Pain 10/15/16 05:45 11/14/16 05:44 Ondansetron HCl (Zofran) 4 mg Q6H PRN IVP Nausea & Vomiting 10/15/16 05:45 11/14/16 05:44 Pantoprazole 40 mg 40 mg DAILY IVP 10/15/16 09:00 11/14/16 08:59 10/15/16 09:25 Polyethylene Glycol (Miralax) 17 gm HSPRN PRN ORAL Constipation 10/15/16 05:45 11/14/16 05:44 Temazepam (Restoril) 15 mg HSPRN PRN ORAL Insomnia 10/15/16 05:45 10/22/16 05:44 GI: Plan Problems: (1) Appendicitis (2) Right lower quadrant abdominal pain Plan patient scheduled for lap appy today - maintain NPO + IVFs fu surgical recs pain mgmt brook regime ppi fu labs Discussed with Dr. Cash. Thank you for referring this patient, we will follow. Rosa Velázquez N.P. Oct 15, 2016 11:27
--- NOTE | 2016-10-15 12:15 | Consultation ---
DATE OF CONSULTATION: 10/15/2016 INFECTIOUS DISEASE CONSULTATION REQUESTING PHYSICIAN: Sesar Rivera M.D. REASON FOR CONSULTATION: Abdominal pain. HISTORY OF PRESENT ILLNESS: This is a 46-year-old female, admitted on 10/14/2016 with 3-day history of abdominal pain in the right lower quadrant, periumbilical. Associated nausea. Denies fevers or chills. The CT abdomen and pelvis shows some prominence of the appendix and haziness surrounding. Surgical evaluation for possible appendicitis is pending. Unclear whether or not she has received any antibiotics to date. ID now consulted to assist in management. PAST MEDICAL HISTORY: Asthma. PAST SURGICAL HISTORY: None. MEDICATIONS: No antibiotics. ALLERGIES: Penicillin causes rash. SOCIAL HISTORY: Denies tobacco, alcohol or illicit drug abuse. She is and lives locally with family. FAMILY HISTORY: Noncontributory. REVIEW OF SYSTEMS: As per history of present illness. Ten systems reviewed. All pertinent positives and negatives noted. PHYSICAL EXAMINATION: VITAL SIGNS: Maximum temperature 98.1, blood pressure 126/80, heart rate in the 80s, respiratory rate 18, and saturating 99% on room air. GENERAL: No apparent distress. Nontoxic appearing. CARDIOVASCULAR: Regular rate and rhythm. No murmurs. PULMONARY: Clear to auscultation bilaterally. ABDOMINAL: Bowel sounds present. Soft, nondistended with right lower quadrant tenderness to palpation. EXTREMITIES: No edema. SKIN: No rash. NEUROLOGICAL: alert and oriented x3. Nonfocal. LABORATORY DATA: White blood cell count 9, hemoglobin 14.5, and platelets 327,000. Sodium 139, potassium 4.1, chloride 100, bicarbonate 30, BUN 15, and creatinine 0.8. Liver function tests and lipase within normal limits. test negative. Urinalysis is negative. MICROBIOLOGY: None. IMAGING: On 09/14/2016, CT abdomen and pelvis with prominence of the appendix and haziness surrounding the appendix. ASSESSMENT: 1. Abdominal pain possible appendicitis. Surgical evaluation is pending. CT as above. 2. Afebrile without leukocytosis. 3. Penicillin allergy causes rash. 4. Full Code. PLAN: 1. Start empiric cefepime with Flagyl day#1. 2. Surgical evaluation. 3. Monitor CBC and temperatures. 4. Monitor BMP. Thank you. We will follow. Albert Casiano M.D. DR: TRACI JOB#: [id number] CC: Sesar Rivera M.D.; Fax#: [phone] Rea M.D; Fax#: [phone]
[2016-10-15] MEDS ORDERED: Cefepime HCl 2 GM in D5W 110 ML IVPB SCH (12:30)
[2016-10-15] MEDS ORDERED: Bupivacaine w/Epi 0.5% 30ml Vial INJ ONE (12:58)
[2016-10-15] MEDS ORDERED: Succinylcholine 20mg/ml 10ml vial ONE (13:00)
[2016-10-15] MEDS ORDERED: Lidocaine 1% MPF 10mg/ml 5ml ONE (13:00)
[2016-10-15] MEDS ORDERED: LR 1000ml ONE (13:00)
[2016-10-15] MEDS ORDERED: Midazolam 2mg/2ml Inj ONE (13:00)
[2016-10-15] MEDS ORDERED: NS Irrig 1000ml ONE (13:00)
[2016-10-15] MEDS ORDERED: Dexamethasone 4mg/ml vial ONE (13:00)
[2016-10-15] MEDS ORDERED: Propofol 10mg/ml 20ml IV ONE (13:00)
[2016-10-15] MEDS ORDERED: Metoclopramide 10mg/2ml Inj ONE (13:00)
[2016-10-15] MEDS ORDERED: Zemuron 50mg/5ml Inj IV ONE (13:00)
[2016-10-15] MEDS ORDERED: Sterile Water Irrig 1000ml IRRIG ONE (13:00)
[2016-10-15] MEDS ORDERED: fentaNYL 250mcg/5ml ONE (13:00)
--- NOTE | 2016-10-15 13:31 | Diagnostic Imaging Report ---
Clinical Indication: Abdominal pain Technique: Patient given oral contrast. IV administration nonionic contrast. Venous phase spiral acquisition obtained through the abdomen and pelvis. Multiplanar reconstructions were generated. Total dose length product 884 mGycm. CTDIvol(s) 16 mGy. Dose reduction achieved using automated exposure control Comparison: 10/27/2012 Findings: The proximal appendix contains air. However, the distal appendix is mildly thickened, measuring up to 10 mm thick, and there is suggestion of slight infiltration of the periappendiceal fat. The caliber of the appendix is distinctly increased from the previous study, at which time the maximal caliber was 4 mm. No surrounding extraluminal gas or fluid is evident. There are equivocal small colonic diverticula. No evidence of diverticulitis. No small bowel distention or small bowel wall thickening no free or loculated intraperitoneal air or fluid is evident. The distal esophagus, stomach, duodenum are unremarkable. Again demonstrated are bilateral breast prostheses. The liver, gallbladder, bile ducts, pancreas, spleen, adrenals, right kidney are unremarkable. Left kidney demonstrates a 1.3 cm fluid attenuation cyst, which has increased in size since the prior study. No mesenteric or retroperitoneal mass or adenopathy. The bladder is distended. There is again demonstrated a 2.4 cm right ovarian cyst. Left ovary is unremarkable. The uterus is unremarkable. No pelvic mass otherwise. No pelvic adenopathy. The included lung bases demonstrate posterior dependent atelectatic changes. The bones are unremarkable. Impression: Although the proximal appendiceal shaft contains air, the distal appendix is slightly swollen and there is slight infiltration of the periappendiceal fat. In view of normal caliber appendix seen on prior study of 10/27/2012, findings are deemed suspicious for acute distal appendicitis. College with clinical findings is recommended 2.4 cm right ovarian cyst, possibly also previously demonstrated, most likely a functional cyst or a dominant follicle. Consider further evaluation with pelvic ultrasound if clinically indicated Incidental finding left renal cyst Distended bladder This agrees with the preliminary interpretation provided overnight by [facility] teleradiology service. Findings also reviewed in person with referring surgeon Dr. Hartley The CT scanner at [facility] is accredited by the [employer] [place] [employer] and the scans are performed using protocols designed to limit radiation exposure to as low as reasonably achievable to attain images of sufficient resolution adequate for diagnostic evaluation.
[2016-10-15] MEDS ORDERED: LR 1000ml 1,000 ML IVLG SCH (13:36)
--- NOTE | 2016-10-15 13:36 | Anethesia Preoperative Eval ---
Anesthesia Pre-op PMH/ROS General Date of Evaluation: Oct 15, 2016 Anesthesiologist: Scotty ASA Score: ASA 2 Mallampati Score Class I : Soft palate, uvula, fauces, pillars visible Class II: Soft palate, uvula, fauces visible Class III: Soft palate, base of uvula visible Class IV: Only hard plate visible Mallampati Classification: Class II Surgeon: Naeem Diagnosis: Acute appendicitis Surgical Procedure: Laparoscopic appendenctomy Anesthesia History: none Family History: no anesthesia problems Allergies: Coded Allergies: PENICILLINS (Verified Allergy, Intermediate, TACHYCARDIA, 03/30/16) Medications: see eMAR Past Medical History Cardiovascular: Denies: CAD, HTN, NV, arrhythmia, other, valve dz Pulmonary: Reports: asthma, Denies: COPD, HORTENSIA, other Gastrointestinal/Genitourinary: Reports: GERD, Denies: CRI, ESRD, other Neurologic/Psychiatric: Reports: depression/anxiety, Denies: CVA, TIA, dementia, other Endocrine: Denies: DM, hypothyroidism, other, steroids HEENT: Denies: [place] (L), [place] (R), cataract (L), cataract (R), glaucoma, other Hematology/Immune: Denies: DVT, anemia, bleeding disorder, other Musculoskeletal/Integumentary: Denies: DDD, DJD, OA, RA, edema, other Other: other - overweight PSxH Narrative: tummy tuck, bilateral breast implants Anesthesia Pre-op Phys. Exam Physician Exam Last Vital Signs Date Time Temp Pulse Resp B/P Pulse Ox O2 Delivery O2 Flow Rate FiO2 10/15/16 12:00 97.5 63 20 114/75 98 10/15/16 08:00 Room Air Constitutional: NAD Cardiovascular: RRR Respiratory: CTA Airway Exam Mallampati Score: Class II MO: limited ROM: full Teeth: intact Anesthesia Pre-op A/P Labs Hematology Test 10/14/16 21:40 White Blood Count 9.0 K/UL (4.8-10.8) Red Blood Count 4.59 M/UL (4.20-5.40) Hemoglobin 14.5 G/DL (12.0-16.0) Hematocrit 44.0 % (37.0-47.0) Mean Corpuscular Volume 96 FL (80-99) Mean Corpuscular Hemoglobin 31.6 PG (27.0-31.0) H Mean Corpuscular Hemoglobin Concent 32.9 G/DL (32.0-36.0) Red Cell Distribution Width 12.3 % (11.6-14.8) Platelet Count 327 K/UL (150-450) Mean Platelet Volume 5.5 FL (6.5-10.1) L Neutrophils (%) (Auto) 49.7 % (45.0-75.0) Lymphocytes (%) (Auto) 38.4 % (20.0-45.0) Monocytes (%) (Auto) 9.6 % (1.0-10.0) Eosinophils (%) (Auto) 1.2 % (0.0-3.0) Basophils (%) (Auto) 1.0 % (0.0-2.0) Coagulation Test 10/15/16 09:35 Prothrombin Time 9.9 SEC (9.30-11.50) Prothromb Time International Ratio 0.9 (0.9-1.1) Activated Partial Thromboplast Time 28 SEC (23-33) Chemistry Test 10/14/16 21:40 Sodium Level 139 mEQ/L (135-145) Potassium Level 4.1 mEQ/L (3.4-4.9) Chloride Level 100 mEQ/L (98-107) Carbon Dioxide Level 30 mEQ/L (20-30) Anion Gap 9 (5-15) Blood Urea Nitrogen 15 mg/dL (7-23) Creatinine 0.8 mg/dL (0.5-0.9) Estimat Glomerular Filtration Rate > 60 mL/min (>60) Glucose Level 106 mg/dL (74-106) Calcium Level 9.0 mg/dL (8.6-10.2) Total Bilirubin < 0.2 mg/dL (0.0-1.2) Aspartate Amino Transf (AST/SGOT) 18 U/L (5-40) Alanine Aminotransferase (ALT/SGPT) 15 U/L (3-33) Alkaline Phosphatase 97 U/L (35-104) Total Protein 6.8 g/dL (6.6-8.7) Albumin 4.0 g/dL (3.5-5.2) Globulin 2.8 g/dL Albumin/Globulin Ratio 1.4 (1.0-2.7) Lipase 27 U/L (< 60) Human Chorionic Gonadotropin, Qual Negative Urine Test Test 10/15/16 05:30 Urine HCG, Qualitative Negative Serum Test Test 10/14/16 21:40 Human Chorionic Gonadotropin, Qual Negative Studies Pre-op Studies: EKG - sr Risk Assessment & Plan Assessment: ASA II Plan: GA Status Change Before Surgery: No Pre-Antibiotics Drug: Cipro 400mg APSR Given Within 1 Hr of Incision: Yes Time Given: 13:00 MILES MEDINA M.D. Oct 15, 2016 13:36
--- NOTE | 2016-10-15 13:40 | Immediate Post-Op Evaluation ---
Immediate Post-Op Evalulation Immediate Post-Op Evalulation Procedure: Laparoscopic appendectomy Date of Evaluation: Oct 15, 2016 Time of Evaluation: 14:14 IV Fluids: 800 Blood Products: 0 Estimated Blood Loss: 50 Urinary Output: 0 Blood Pressure Systolic: 141 Blood Pressure Diastolic: 80 Pulse Rate: 73 Respiratory Rate: 16 O2 Sat by Pulse Oximetry: 100 Temperature (Fahrenheit): 97.2 Pain Score (1-10): 0 Nausea: No Vomiting: No Complications 0 Patient Status: awake, reacts, patent, none Hydration Status: adequate Drug: Cipro 400mg APSR Given Within 1 Hr of Incision: Yes Time Given: 13:00 MILES MEDINA M.D. Oct 15, 2016 13:40
--- NOTE | 2016-10-15 13:40 | 48 Hour Post Anesthesia Eval ---
Post Anesthesia Evaluation Procedure: Laparoscopic appendectomy Date of Evaluation: Oct 15, 2016 Time of Evaluation: 08:25 Blood Pressure Systolic: 110 0: 63 Pulse Rate: 59 Respiratory Rate: 19 Temperature (Fahrenheit): 97.3 O2 Sat by Pulse Oximetry: 97 Airway: patent Nausea: No Vomiting: No Pain Intensity: 0 Hydration Status: adequate Cardiopulmonary Status: at baseline Mental Status/LOC: patient returned to baseline Post-Anesthesia Complications: 0 Follow-up care needed: N/A - further care as per primary team MILES MEDINA M.D. Oct 15, 2016 13:40
[2016-10-15] MEDS ORDERED: Midazolam 2mg/2ml Inj IVP PRN (13:45)
[2016-10-15] MEDS ORDERED: LORazepam Inj 2mg/ml 1ml IV PRN (13:45)
[2016-10-15] MEDS ORDERED: Hydromorphone 0.5mg/0.5ml inj IVP PRN (13:45)
[2016-10-15] MEDS ORDERED: Metoclopramide 10mg/2ml Inj IVP PRN (13:45)
[2016-10-15] MEDS ORDERED: DiphenhydrAMINE 50mg/ml Inj IVP PRN (13:45)
[2016-10-15] MEDS ORDERED: fentaNYL 100 mcg/2 mL IV PRN (13:45)
--- NOTE | 2016-10-15 14:14 | Brief Operative Note ---
Immediate Post Operative Note Operative Note Pre-op Diagnosis: acute appendicitis Procedure: lap appy Post-op Diagnosis: same as pre-op Surgeon: nohemy Anesthesiologist: lexi Anesthesia: general Specimen: yes - appendix Complications: none Fluids: see records Estimated Blood Loss: minimal Drains: none Implant(s) used?: No Michael Hartley Oct 15, 2016 14:14
[2016-10-15] MEDS ORDERED: Hydromorphone 0.5mg/0.5ml inj ONE (14:50)
[2016-10-15] MEDS: Cefepime HCl 2 GM in D5W 110 ML IVPB SCH (17:14)
--- NOTE | 2016-10-15 17:58 | History & Physical ---
History and Physical History & Physicial Dictated for Int Med-Dr Rivera no. [id number]. RHIANNON SABA Oct 15, 2016 17:58
[2016-10-15] MEDS: Morphine Sulfate 2mg/ml Inj IVP PRN (21:16)
--- NOTE | 2016-10-15 23:45 | Operative Note - Dictated ---
DATE OF OPERATION: 10/15/2016 PREOPERATIVE DIAGNOSIS: Acute appendicitis. POSTOPERATIVE DIAGNOSIS: Acute appendicitis. OPERATION PERFORMED: Laparoscopic appendectomy. ATTENDING SURGEON: Michael Hartley M.D. DIRECTOR OF MEDIA: None. ANESTHESIOLOGIST: Dr. Ag. ANESTHESIA: General WAGON PERSON. ESTIMATED BLOOD LOSS: Minimal. IV FLUIDS: Please see anesthesia records. WOUND CLASSIFICATION: Class III. ANTIBIOTICS: The patient was on scheduled intravenous antibiotics for therapeutic effect. COMPLICATIONS: None. DRAINS: None. SPECIMENS: Appendix sent to pathology for review. COUNTS: Sponge and needle count correct x2. PERTINENT OPERATIVE FINDINGS: 1. Acute appendicitis identified with an enlarged thickened injected appendix without perforation or necrosis. 2. Periappendiceal mesoappendix inflammatory reaction noted. 3. No other complications. 4. Successful laparoscopic appendectomy performed. INDICATIONS FOR PROCEDURES: The patient is a 46-year-old female, who presented to the emergency department with worsening abdominal pain x4 days. The patient states back approximately four days, she began to notice a vague periumbilical abdominal pain, which has since migrated to the right lower quadrant. Pain is associated with nausea, but no emesis. As pain progressed, she was sent to the emergency department for an evaluation. In the emergency department, she had a CT scan, which identified some irregularity in the mid appendix with surrounding stranding. As compared to the prior CT, the appendix was definitively larger and potentially indicative of appendicitis. On examination, the patient was noted to have focal right lower quadrant tenderness with rebound and voluntary guarding. These findings were discussed with the patient and surgical intervention was recommended. The risks, benefits, alternatives of surgery were discussed with the patient who expressed understanding and consented to surgery. OPERATIVE NOTE: The patient was taken to the operating room, placed on the operating table in supine position. Bilateral arms out. All bony prominences well padded with gel pads. Appropriate time-out was taken identifying the patient, procedure, operative site, and surgical staff. SCDs were placed. No Haile catheter was placed given the patient has voided just prior to entering the operating room. The patient was on scheduled intravenous antibiotics for therapeutic effect prior to entering the operating room. General anesthesia was induced and the patient was intubated. The left arm was tucked. The abdomen was then prepped and draped in standard surgical fashion. An infraumbilical incision was made and carried down to the fascia, which was elevated and incised. A Veress needle was inserted into the abdomen with appropriate saline test. The abdomen was then insufflated to 1250 mm Hg without complication. The patient tolerated insufflation well. A laparoscope was then inserted and the abdomen inspected. Two secondary trocars were approximated under direct visualization involving locations, one suprapubic midline, 5 mm port, followed by a 12 mm left lower quadrant port. At this time, the laparoscopic grasper was used to identify the cecum, the terminal ilium, and finally following confluence of the tineia to identify the appendix. The appendix was noted to be retrocecal with the transition into the pelvis. The appendix was inflamed and dilated with an injector indicative of acute appendicitis. No perforation, abscess, necrosis, or gangrene was noted. At this time, the appendix was grasped and elevated and freed from its surrounding adhesions. Following this, the mesoappendix clearly identified as was the base of the appendix, mesoappendix tip and appendiceal tip. A window was made at the base of the appendix. An endoscopic linear stapler was then entered into the abdomen and the appendix was ligated and divided at its base using the endoscopic linear stapler. Once this was completed, the mesoappendix was ligated and divided using a endoscopic linear stapler as well. The appendix was then placed in the endoscopic retrieval bag and removed from the abdomen. Appendix was sent to pathology for review. The abdomen was then evaluated and so were the staple lines. No bleeding was noted and the stapled base of the appendix with the cecum was satisfactory. At this time, secondary trocars were removed under direct visualization. The abdomen was allowed to collapse. The 12 mm fascial site was closed using a 0 Vicryl [id number] suture. The remaining skin incisions were closed using 4-0 Monocryl subcuticular sutures. Local anesthetic was injected in the wound sites. The abdomen was cleansed and dressings were applied. The patient tolerated the procedure well and was extubated and taken to the postanesthesia care in stable condition. Michael Hartley M.D. DR: NAA JOB#: [id number] CC: THERESE
[2016-10-16] VITALS: BP 112/69
--- NOTE | 2016-10-16 00:15 | History and Physical Report ---
DATE OF ADMISSION: 10/15/2016 CHIEF COMPLAINT: The patient is a 46-year-old female, who presents with a chief complaint of abdominal pain. HISTORY OF PRESENT ILLNESS: Began on 10/11/2016. The patient began to experience periumbilical pain. Pain began to radiate to the right lower quadrant. The patient was experiencing nausea without vomiting. The patient denies fevers. The patient presented to [facility] emergency room. The patient is admitted for right lower quadrant pain to rule out appendicitis. PAST MEDICAL HISTORY: Significant for asthma. PAST SURGICAL HISTORY: The patient denies. CURRENT MEDICATIONS: 1. Albuterol metered-dose inhaler 2 puffs p.o. q.i.d. p.r.n. 2. Ativan 1 mg one tablet p.o. 3 times daily p.r.n. ALLERGIES: Penicillin. 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 The patient denies tobacco or alcohol use. REVIEW OF SYSTEMS: Constitutional: The patient denies weight loss or weight gain. The patient denies fevers or chills. HEENT: The patient denies ear or throat pain. The patient denies headache. Cardiovascular: The patient denies palpitations or chest pain. Chest: The patient denies wheezes or shortness of breath. Abdomen: The patient complains of nausea as above. The patient complains of right lower quadrant pain as above. The patient denies vomiting or diarrhea. Genitourinary: The patient denies dysuria or increased frequency of urination. Neuromuscular: The patient denies seizures or generalized weakness. PHYSICAL EXAMINATION: VITAL SIGNS: Temperature 96.4 degrees , respirations 18, pulse 59, and blood pressure 120/80. GENERAL: The patient is well developed and well nourished female in no apparent distress. HEENT: Eyes pupils are equal and responsive to light and accommodation. Extraocular movements are intact. NECK: Supple without lymphadenopathy. CHEST: Lungs are clear to auscultation bilaterally without wheezes or rales. CARDIOVASCULAR: Regular rhythm and rate. S1 and S2 are normal without murmurs, rubs, or gallops. ABDOMEN: Soft and nondistended with positive bowel sounds. Tender to palpation right lower quadrant with voluntary guarding. No evidence of rebound. EXTREMITIES: Negative for clubbing, cyanosis, or edema. RECTAL/GENITALIA: Refused. NEUROLOGIC: Cranial nerves II to XII are grossly intact without focal deficits. Motor strength is 5/5 bilaterally. Deep tendon reflexes are 2+ plantar. LABORATORY STUDIES: WBC 9.0, hemoglobin 14.5, hematocrit 34.0 and platelets 327,000. Sodium 139, potassium 4.1, chloride 100, CO2 30, BUN 15, creatinine 0.8, and glucose 106. Urinalysis showed 2+ occult blood, with 5 to [address] scan of the abdomen and pelvis showed distal appendiceal swelling and infiltration. ASSESSMENT: This is a 46-year-old female. 1. Right lower quadrant pain. 2. Acute appendicitis. 3. Asthma. 4. Nausea without vomiting. 5. Abdominal pain. TREATMENT: 1. Right lower quadrant pain/acute appendicitis. A General Surgery consultation has been obtained with Dr. Naeem Rodriguez. The patient will require emergent laparoscopic appendectomy. We will follow recommendations of Surgery. The patient is currently NPO. 2. Asthma. Continue albuterol metered-dose inhaler as above. 3. Nausea without vomiting. This is secondary to appendicitis as above. Evan Mcnamara M.D. DR: MONICA JOB#: [id number] CC:
[2016-10-16 04:00] VITALS: BP 118/71
[2016-10-16] MEDS: Cefepime HCl 2 GM in D5W 110 ML IVPB SCH (04:20)
[2016-10-16] MEDS: Morphine Sulfate 2mg/ml Inj IVP PRN (04:28)
[2016-10-16] MEDS: metroNIDAZOLE 500mg 100 ML IVPB SCH (05:13)
[2016-10-16 07:10] LABS: MEAN CORPUSCULAR HEMOGLOBIN 31.8 PG (27.0-31.0); MEAN CORPUSCULAR HGB CONC 33.3 G/DL (32.0-36.0); MEAN CORPUSCULAR VOLUME 95 FL (80-99); MEAN PLATELET VOLUME 5.9 FL (6.5-10.1); PLATELET COUNT 321 K/UL (150-450); RED CELL DISTRIBUTION WIDTH 12.1 % (11.6-14.8); WHITE BLOOD COUNT 9.5 K/UL (4.8-10.8)
[2016-10-16 07:34] LABS: ALANINE AMINOTRANSFERASE 13 U/L (3-33); ALBUMIN/GLOBULIN RATIO 1.3 (1.0-2.7); AMYLASE 31 U/L (10-110); ANION GAP 15 (5-15); ASPARTATE AMINO TRANSFERASE 16 U/L (5-40); CALCIUM 9.1 mg/dL (8.6-10.2); CARBON DIOXIDE 24 mEQ/L (20-30); CHLORIDE 101 mEQ/L (98-107); CREATININE 0.6 mg/dL (0.5-0.9); GLOMERULAR FILTRATION RATE > 60 mL/min (>60); HEMOLYSIS 1; LIPASE 17 U/L (< 60); SODIUM 140 mEQ/L (135-145); TOTAL PROTEIN 6.5 g/dL (6.6-8.7)
[2016-10-16 08:23] VITALS: BP 110/63
[2016-10-16] MEDS: D5 1/2NS 1,000 ML IV SCH (08:55)
[2016-10-16] MEDS: Pantoprazole Inj IVP SCH (09:00)
--- NOTE | 2016-10-16 10:21 | General Surgery Progress Note ---
General Surgery-Progress Note Subjective Symptoms: improved Objective Last 24 Hour Vital Signs Date Time Temp Pulse Resp B/P Pulse Ox O2 Delivery O2 Flow Rate FiO2 10/16/16 09:46 59 19 97 10/16/16 08:23 97.3 59 19 110/63 97 Room Air 10/16/16 04:00 97.5 65 20 118/71 94 Nasal Cannula 3.0 10/16/16 00:00 97.0 59 20 112/69 95 Nasal Cannula 3.0 10/15/16 20:00 97.5 65 20 118/71 94 Nasal Cannula 10/15/16 16:00 97.3 67 20 120/67 100 Room Air 10/15/16 15:20 98.5 65 15 122/71 100 Nasal Cannula 3.0 10/15/16 15:20 98.5 10/15/16 15:05 64 13 122/75 100 Nasal Cannula 3.0 10/15/16 14:50 64 13 139/78 100 Nasal Cannula 3.0 10/15/16 14:35 63 12 142/81 100 Nasal Cannula 3.0 10/15/16 14:20 68 12 149/85 100 Simple Mask 6.0 10/15/16 14:15 69 12 147/87 100 Simple Mask 6.0 10/15/16 14:12 73 16 100 10/15/16 14:10 97.2 77 16 141/80 100 Simple Mask 6.0 10/15/16 12:00 97.5 63 20 114/75 98 I&O Intake and Output 10/15/16 10/16/16 19:00 07:00 Intake Total 1100 ml 907.5 ml Output Total 50 ml Balance 1050 ml 907.5 ml Intake Oral 200 ml IV Total 900 ml 907.5 ml Estimated Blood Loss 50 ml # Voids 4 2 Dressing: dry Wound: clean Drains: none Cardiovascular: RSR Respiratory: clear Abdomen: soft Extremities: no edema Laboratory Tests Test 10/16/16 05:00 White Blood Count 9.5 K/UL (4.8-10.8) Red Blood Count 4.10 M/UL (4.20-5.40) L Hemoglobin 13.0 G/DL (12.0-16.0) Hematocrit 39.1 % (37.0-47.0) Mean Corpuscular Volume 95 FL (80-99) Mean Corpuscular Hemoglobin 31.8 PG (27.0-31.0) H Mean Corpuscular Hemoglobin Concent 33.3 G/DL (32.0-36.0) Red Cell Distribution Width 12.1 % (11.6-14.8) Platelet Count 321 K/UL (150-450) Mean Platelet Volume 5.9 FL (6.5-10.1) L Neutrophils (%) (Auto) % (45.0-75.0) Lymphocytes (%) (Auto) % (20.0-45.0) Monocytes (%) (Auto) % (1.0-10.0) Eosinophils (%) (Auto) % (0.0-3.0) Basophils (%) (Auto) % (0.0-2.0) Activated Partial Thromboplast Time 26 SEC (23-33) Sodium Level 140 mEQ/L (135-145) Potassium Level 4.0 mEQ/L (3.4-4.9) Chloride Level 101 mEQ/L (98-107) Carbon Dioxide Level 24 mEQ/L (20-30) Anion Gap 15 (5-15) Blood Urea Nitrogen 11 mg/dL (7-23) Creatinine 0.6 mg/dL (0.5-0.9) Estimat Glomerular Filtration Rate > 60 mL/min (>60) Glucose Level 153 mg/dL (74-106) H Calcium Level 9.1 mg/dL (8.6-10.2) Total Bilirubin 0.3 mg/dL (0.0-1.2) Aspartate Amino Transf (AST/SGOT) 16 U/L (5-40) Alanine Aminotransferase (ALT/SGPT) 13 U/L (3-33) Alkaline Phosphatase 87 U/L (35-104) Total Protein 6.5 g/dL (6.6-8.7) L Albumin 3.7 g/dL (3.5-5.2) Globulin 2.8 g/dL Albumin/Globulin Ratio 1.3 (1.0-2.7) Amylase Level 31 U/L (10-110) Lipase 17 U/L (< 60) Assessment Post-op Diagnosis acute appendicitis Additional Comments Pt c/o rt shoulder pain, explained that this was due to insufflation of CO2 from laparoscopy Plan Additional Comments Pt can be discharged today on a soft diet, Rx: NORCO 5-325 disp 30, follow up with Dr Hartley on 10-19-16 Primitivo Copeland MD Oct 16, 2016 10:21
[2016-10-16 11:44] VITALS: BP 102/68
--- NOTE | 2016-10-16 11:52 | Pulmonology Progress Note ---
Assessment/Plan Assessment/Plan ASSESSMENT Acute appendicitis (identified with an enlarged thickened injected appendix without perforation or necrosis). Periappendiceal mesoappendix acute abdominal pain due to acute appy s/p lap appy 10/15 PLAN OF CARE [facility] floor s/p surgery 3 laparoscopic incision C/D/I tolerated liquid diet pain controlled ambulated voided freely surgery cleared for dc Fup with surgeon as outpatient case discussed and evaluated by supervising physician Subjective Allergies: Coded Allergies: PENICILLINS (Verified Allergy, Intermediate, TACHYCARDIA, 03/30/16) Subjective afebrile, no leukocytosis tolerated liquid diet ambulated pain controlled Objective Last 24 Hour Vital Signs Date Time Temp Pulse Resp B/P Pulse Ox O2 Delivery O2 Flow Rate FiO2 10/16/16 11:44 97.7 60 19 102/68 100 Room Air 10/16/16 09:46 59 19 97 10/16/16 08:23 97.3 59 19 110/63 97 Room Air 10/16/16 04:00 97.5 65 20 118/71 94 Nasal Cannula 3.0 10/16/16 00:00 97.0 59 20 112/69 95 Nasal Cannula 3.0 10/15/16 20:00 97.5 65 20 118/71 94 Nasal Cannula 10/15/16 16:00 97.3 67 20 120/67 100 Room Air 10/15/16 15:20 98.5 65 15 122/71 100 Nasal Cannula 3.0 10/15/16 15:20 98.5 10/15/16 15:05 64 13 122/75 100 Nasal Cannula 3.0 10/15/16 14:50 64 13 139/78 100 Nasal Cannula 3.0 10/15/16 14:35 63 12 142/81 100 Nasal Cannula 3.0 10/15/16 14:20 68 12 149/85 100 Simple Mask 6.0 10/15/16 14:15 69 12 147/87 100 Simple Mask 6.0 10/15/16 14:12 73 16 100 10/15/16 14:10 97.2 77 16 141/80 100 Simple Mask 6.0 10/15/16 12:00 97.5 63 20 114/75 98 Intake and Output 10/15/16 10/16/16 19:00 07:00 Intake Total 1100 ml 907.5 ml Output Total 50 ml Balance 1050 ml 907.5 ml Intake Oral 200 ml IV Total 900 ml 907.5 ml Estimated Blood Loss 50 ml # Voids 4 2 Objective General Appearance: WD/WN, no apparent distress, alert Lines, tubes and drains: peripheral HEENT: normocephalic, atraumatic, anicteric, PERRL Neck: non-tender Respiratory/Chest: lungs clear, normal breath sounds, no respiratory distress, no accessory muscle use Cardiovascular/Chest: normal peripheral pulses, normal rate, regular rhythm, no JVD Abdomen: normal bowel sounds, soft - RLQ tenderness with guarding Extremities: normal range of motion, non-tender, no calf tenderness Skin Exam: warm/dry 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, no motor/sensory deficits, alert, oriented x 3 Musculoskeletal: normal muscle bulk Laboratory Tests 10/16/16 05:00: White Blood Count 9.5, Red Blood Count 4.10L, Hemoglobin 13.0, Hematocrit 39.1, Mean Corpuscular Volume 95, Mean Corpuscular Hemoglobin 31.8H, Mean Corpuscular Hemoglobin Concent 33.3, Red Cell Distribution Width 12.1, Platelet Count 321, Mean Platelet Volume 5.9L, Neutrophils (%) (Auto) , Lymphocytes (%) (Auto) , Monocytes (%) (Auto) , Eosinophils (%) (Auto) , Basophils (%) (Auto) , Activated Partial Thromboplast Time 26, Sodium Level 140, Potassium Level 4.0, Chloride Level 101, Carbon Dioxide Level 24, Anion Gap 15, Blood Urea Nitrogen 11, Creatinine 0.6, Estimat Glomerular Filtration Rate > 60, Glucose Level 153H , Calcium Level 9.1, Total Bilirubin 0.3, Aspartate Amino Transf (AST/SGOT) 16, Alanine Aminotransferase (ALT/SGPT) 13, Alkaline Phosphatase 87, Total Protein 6.5L, Albumin 3.7, Globulin 2.8, Albumin/Globulin Ratio 1.3, Amylase Level 31, Lipase 17 Current Medications Medications (Trade) Dose Ordered Sig/Sal Route PRN Reason Start Time Stop Time Status Last Admin Dose Admin Acetaminophen (Tylenol) 650 mg Q4H PRN ORAL fever 10/15/16 05:45 11/14/16 05:44 Al Hydroxide/Mg Hydroxide (Mylanta II) 30 ml Q6H PRN ORAL dyspepsia 10/15/16 05:45 11/14/16 05:44 Cefepime HCl/ Dextrose (Maxipime/D5W) 110 ml @ 220 mls/hr Q12HR@0500,1700 IVPB 10/15/16 17:00 10/22/16 16:59 10/16/16 04:20 Dextrose (Dextrose 50%) STAT PRN IV Hypoglycemia 10/15/16 05:45 11/14/16 05:44 Dextrose/Sodium Chloride (D5 0.45% NS) 1,000 ml @ 75 mls/hr [id number] IV 10/15/16 06:15 11/14/16 06:14 10/16/16 08:55 Diphenhydramine HCl (Benadryl) 25 mg Q6H PRN ORAL Itching/Pruritis 10/15/16 05:45 11/14/16 05:44 Metronidazole 100 ml @ 100 mls/hr Q8HR IVPB 10/15/16 10:30 10/22/16 10:29 10/16/16 05:13 Morphine Sulfate (Morphine Sulfate) 2 mg Q4H PRN IVP severe Pain (Pain Scale 7-10) 10/15/16 05:45 10/22/16 05:44 10/16/16 04:28 Nitroglycerin (Ntg) 0.4 mg Q5M X 3 DOSES PRN SL Prn Chest Pain 10/15/16 05:45 11/14/16 05:44 Ondansetron HCl (Zofran) 4 mg Q6H PRN IVP Nausea & Vomiting 10/15/16 05:45 11/14/16 05:44 Pantoprazole 40 mg 40 mg DAILY IVP 10/15/16 09:00 11/14/16 08:59 10/16/16 09:00 Polyethylene Glycol (Miralax) 17 gm HSPRN PRN ORAL Constipation 10/15/16 05:45 11/14/16 05:44 Temazepam (Restoril) 15 mg HSPRN PRN ORAL Insomnia 10/15/16 05:45 10/22/16 05:44 Rupali Coelho NP (Vanchtein) Oct 16, 2016 11:52
--- NOTE | 2016-10-16 11:57 | Discharge Instructions ---
Discharge Instructions Discharge Instructions Follow up with: surgeon as adbised by surgeon Call MD/Return to Hospital if: fever, chills, purulent drianage from incision, nausea, not eating, pain Diet: regular - as tolerated Activity: as tolerated For Congestive Heart Failure Reminder Report to your physician any weight gain of 5 pounds or more in one week. [place] ([facility]),Rupali STORM Oct 16, 2016 11:57
[2016-10-16] MEDS ORDERED: METRONIDAZOLE500 MG ORAL (13:26)
[2016-10-16] MEDS ORDERED: NORCO 5-325 TA1 EAC1 ORAL (13:26)
--- NOTE | 2016-10-16 13:49 | Internal Med Progress Note ---
Subjective Date of Service: Oct 16, 2016 Physician Name Evan Saba Attending Physician Sesar Rivera MD Current Medications Medications (Trade) Dose Ordered Sig/Sal Route PRN Reason Start Time Stop Time Status Last Admin Dose Admin Acetaminophen (Tylenol) 650 mg Q4H PRN ORAL fever 10/15/16 05:45 11/14/16 05:44 Al Hydroxide/Mg Hydroxide (Mylanta II) 30 ml Q6H PRN ORAL dyspepsia 10/15/16 05:45 11/14/16 05:44 Cefepime HCl/ Dextrose (Maxipime/D5W) 110 ml @ 220 mls/hr Q12HR@0500,1700 IVPB 10/15/16 17:00 10/22/16 16:59 10/16/16 04:20 Dextrose (Dextrose 50%) STAT PRN IV Hypoglycemia 10/15/16 05:45 11/14/16 05:44 Dextrose/Sodium Chloride (D5 0.45% NS) 1,000 ml @ 75 mls/hr [id number] IV 10/15/16 06:15 11/14/16 06:14 10/16/16 08:55 Diphenhydramine HCl (Benadryl) 25 mg Q6H PRN ORAL Itching/Pruritis 10/15/16 05:45 11/14/16 05:44 Metronidazole 100 ml @ 100 mls/hr Q8HR IVPB 10/15/16 10:30 10/22/16 10:29 10/16/16 05:13 Morphine Sulfate (Morphine Sulfate) 2 mg Q4H PRN IVP severe Pain (Pain Scale 7-10) 10/15/16 05:45 10/22/16 05:44 10/16/16 04:28 Nitroglycerin (Ntg) 0.4 mg Q5M X 3 DOSES PRN SL Prn Chest Pain 10/15/16 05:45 11/14/16 05:44 Ondansetron HCl (Zofran) 4 mg Q6H PRN IVP Nausea & Vomiting 10/15/16 05:45 11/14/16 05:44 Pantoprazole 40 mg 40 mg DAILY IVP 10/15/16 09:00 11/14/16 08:59 10/16/16 09:00 Polyethylene Glycol (Miralax) 17 gm HSPRN PRN ORAL Constipation 10/15/16 05:45 11/14/16 05:44 Temazepam (Restoril) 15 mg HSPRN PRN ORAL Insomnia 10/15/16 05:45 10/22/16 05:44 Allergies: Coded Allergies: PENICILLINS (Verified Allergy, Intermediate, TACHYCARDIA, 03/30/16) ROS Limited/Unobtainable: No Constitutional: Reports: no symptoms HEENT: Reports: no symptoms Cardiovascular: Reports: no symptoms Respiratory: Reports: no symptoms Gastrointestinal/Abdominal: Reports: abdominal pain Genitourinary: Reports: no symptoms Neurologic/Psychiatric: Reports: no symptoms Subjective 46 YO F admitted with acute appendicitis; S/P laparoscopic appendectomy 10/15/16. Objective Last Vital Signs Date Time Temp Pulse Resp B/P Pulse Ox O2 Delivery O2 Flow Rate FiO2 10/16/16 11:44 97.7 60 19 102/68 100 Room Air 10/16/16 04:00 3.0 General Appearance: WD/WN, no apparent distress, alert EENT: PERRL/EOMI, normal ENT inspection Neck: non-tender, normal alignment, supple Cardiovascular: normal peripheral pulses, normal rate, regular rhythm, no gallop/murmur, no JVD Respiratory/Chest: chest wall non-tender, lungs clear, normal breath sounds, no respiratory distress, no accessory muscle use Abdomen: no organomegaly, no mass, decreased bowel sounds, guarding, tender Extremities: normal range of motion, non-tender 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, no motor/sensory deficits Skin: normal pigmentation, warm/dry Laboratory Tests Test 10/16/16 05:00 White Blood Count 9.5 K/UL (4.8-10.8) Red Blood Count 4.10 M/UL (4.20-5.40) L Hemoglobin 13.0 G/DL (12.0-16.0) Hematocrit 39.1 % (37.0-47.0) Mean Corpuscular Volume 95 FL (80-99) Mean Corpuscular Hemoglobin 31.8 PG (27.0-31.0) H Mean Corpuscular Hemoglobin Concent 33.3 G/DL (32.0-36.0) Red Cell Distribution Width 12.1 % (11.6-14.8) Platelet Count 321 K/UL (150-450) Mean Platelet Volume 5.9 FL (6.5-10.1) L Neutrophils (%) (Auto) % (45.0-75.0) Lymphocytes (%) (Auto) % (20.0-45.0) Monocytes (%) (Auto) % (1.0-10.0) Eosinophils (%) (Auto) % (0.0-3.0) Basophils (%) (Auto) % (0.0-2.0) Activated Partial Thromboplast Time 26 SEC (23-33) Sodium Level 140 mEQ/L (135-145) Potassium Level 4.0 mEQ/L (3.4-4.9) Chloride Level 101 mEQ/L (98-107) Carbon Dioxide Level 24 mEQ/L (20-30) Anion Gap 15 (5-15) Blood Urea Nitrogen 11 mg/dL (7-23) Creatinine 0.6 mg/dL (0.5-0.9) Estimat Glomerular Filtration Rate > 60 mL/min (>60) Glucose Level 153 mg/dL (74-106) H Calcium Level 9.1 mg/dL (8.6-10.2) Total Bilirubin 0.3 mg/dL (0.0-1.2) Aspartate Amino Transf (AST/SGOT) 16 U/L (5-40) Alanine Aminotransferase (ALT/SGPT) 13 U/L (3-33) Alkaline Phosphatase 87 U/L (35-104) Total Protein 6.5 g/dL (6.6-8.7) L Albumin 3.7 g/dL (3.5-5.2) Globulin 2.8 g/dL Albumin/Globulin Ratio 1.3 (1.0-2.7) Amylase Level 31 U/L (10-110) Lipase 17 U/L (< 60) Intake and Output 10/15/16 10/16/16 19:00 07:00 Intake Total 1100 ml 907.5 ml Output Total 50 ml Balance 1050 ml 907.5 ml Intake Oral 200 ml IV Total 900 ml 907.5 ml Estimated Blood Loss 50 ml # Voids 4 2 Assessment/Plan Problem List: (1) Acute appendicitis Assessment & Plan: S/P laparoscopic appendectomy on 10/15/16. (2) Asthma (3) Nausea (4) Right lower quadrant abdominal pain Assessment & Plan: Due to appendicitis Assessment/Plan D/C home today per surgery. F/U Dr Hartley on 10/19/16. EVAN SABA Oct 16, 2016 13:49
[2016-10-16] MEDS ORDERED: Tubing IV Secondary IV ONE (15:30)
[2016-10-16] MEDS ORDERED: D5 1/2NS 1000ml IV ONE (15:30)
--- NOTE | 2016-10-19 08:29 | Discharge Summary ---
Discharge Summary Hospital Course Date of Admission Oct 15, 2016 at 01:13 Date of Discharge Oct 16, 2016 at 15:38 Admitting Diagnosis RLQ pain HPI Melissa Whalen is a 46 year old female who was admitted on Oct 15, 2016 at 01 :13 for Right Lower Quadrant Pain Hospital Course dc summary #[id number] Discharge Medications New Medications: Hydrocodone Bit/Acetaminophen 5-325* ([place] 5-325 Tablet*) 1 Each Tablet 1 TAB ORAL Q6HR PRN, #20 TAB Metronidazole* (Flagyl*) 500 Mg Tablet 500 MG ORAL EVERY 8 HOURS, #3 TAB Continued Medications: Albuterol Sulfate* (Proair Hfa*) 8.5 Gm Hfa.aer.ad 2 PUFFS INH Q6H, #8.5 GM 0 Refills Lorazepam* (Ativan*) 1 Mg Tablet 1 MG ORAL THREE TIMES A DAY for stress, #21 TAB Discharge Condition Upon Discharge: stable Discharge Disposition Patient was discharged to Home () Discharge Diagnoses: Discharge Instructions Discharge Instructions Follow up with: surgeon as adbised by surgeon Call MD/Return to Hospital if: fever, chills, purulent drianage from incision, nausea, not eating, pain Activity: as tolerated Rupali Coelho NP ([facility]te[facility]) Oct 19, 2016 08:29
--- NOTE | 2016-10-19 12:16 | Discharge Summary 2 SIG ---
DATE OF ADMISSION: 10/15/2016 DATE OF DISCHARGE: 10/16/2016 REASON FOR ADMISSION: This is a 46-year-old female without significant past medical history presented to the emergency department complaining of abdominal pain for the last three days. The pain was described as periumbilical, radiating to right lower quadrant and quantified as 8/10 on a scale of 1 to 10. Pain described as sharp, intermittent. The patient reported nausea, but denied vomiting. She denied chest pain or shortness of breath. She denied fever or chills. Workup in the emergency department revealed no leukocytosis. Stable hemoglobin and hematocrit, electrolytes, renal parameters, LFTs. CT of the abdomen and pelvis revealed irregularity at mid to distal appendix with some surrounding stranding. test was negative. The patient was admitted for possible acute appendicitis. ADMITTING DIAGNOSIS: Include abdominal pain, possible acute appendicitis. HOSPITAL STAY: The patient was admitted to Med/Surg floor. The patient kept NPO. The patient started on IV . Surgery consult requested to start. According to surgeon, CT of the abdomen and pelvis with possible acute appendicitis, however, somewhat atypical presentation given four days of abdominal pain. No leukocytosis. No fever. The patient had in depth discussion with the surgeon and opted for surgery. The patient undergone subsequently laparoscopic appendectomy on 10/15/2016. Pain management provided. Antiemetic provided as needed. The patient had three small laparoscopic incisions clean and dry, covered with dressing. The patient able to tolerate liquid diet. Pain controlled, ambulated, and voided freely. Surgery cleared for discharge. The patient ambulated freely and tolerated clear liquid diet. Follow up with the surgeon as outpatient. DISCHARGE DIAGNOSES: 1. Acute appendicitis (identify with enlarged thickened injected appendix without perforation or necrosis). 2. Periappendiceal mesoappendix. 3. Acute abdominal pain due to the acute . 4. Status post laparoscopic appendectomy 10/15/2016. DISCHARGE MEDICATIONS: See medication reconciliation list. ID was involved in the care of this patient. The patient had empiric antibiotics. Continue Flagyl for additional day per ID recommendation. DISCHARGE INSTRUCTIONS: The patient discharged home. Follow up with the surgeon as recommended. Sesar Rivera M.D. I have been assigned to dictate discharge summary on this account and I was not involved in the patient's management. Rupali medinaCarolina hernandez DR: MARGARET JOB#: [id number] CC:
== END 2016-10-16 15:38 | disposition home or self-care (01) | DRG 225 ==
LOC: EMR 21:15 → 4E 10-15 01:13 → EDBEDREQ 10-15 01:21 → 4E 10-15 02:29
PROC: 0DTJ4ZZ Resection of Appendix, Percutaneous Endoscopic Approach (ICD-10-PCS; principal; 2016-10-15 13:00)
DX: K35.80 Unspecified acute appendicitis (principal); F32.9 Major depressive disorder, single episode, unspecified; K21.9 Gastro-esophageal reflux disease without esophagitis; F41.9 Anxiety disorder, unspecified; J45.909 Unspecified asthma, uncomplicated; Z88.0 Allergy status to penicillin
CPT/HCPCS: 36415; 74177; 80053; 81003; 81025; 82150; 83690; 84703; 85025; 85610; 85730; 94003; 94150; J2250; J2405; J2765

== ENCOUNTER 2017-02-04 13:26 | Emergency (ER) | payer MEDICAID ==
[~2017-02-04] VITALS: Ht 149.9 cm; Wt 67.1 kg
[~2017-02-04 13:26] MED LIST changes: +METRONIDAZOLE500 MG ORAL; +NORCO 5-325 TA1 EAC1 ORAL; +mylanta
[2017-02-04] MEDS ORDERED: NKM (13:38)
[2017-02-04] MEDS ORDERED: Tetanus/Diptheria/Pertussis Vaccine 0.5ml Syr IM ONE (13:45)
[2017-02-04] MEDS ORDERED: Morphine Sulfate 4mg/ml Inj IM ONE ×2 (13:45)
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
[2017-02-04] MEDS ORDERED: SILVADENE20 GM TP (14:28)
[2017-02-04] MEDS ORDERED: NORCO 7.5-3251 EACH ORAL (14:28)
[2017-02-04 14:50] VITALS: BP 141/90
== END 2017-02-04 14:30 | disposition home or self-care (01) ==
LOC: EMR 14:30
DX: T23.202A Burn of second degree of left hand, unspecified site, initial encounter (principal); T31.0 Burns involving less than 10% of body surface; X10.2XXA Contact with fats and cooking oils, initial encounter; Y93.G3 Activity, cooking and baking; Y92.9 Unspecified place or not applicable; Z23 Encounter for immunization; Z88.0 Allergy status to penicillin; J45.909 Unspecified asthma, uncomplicated
CPT/HCPCS: 16020; 90471; 90715; 96372; 99283; J2270; Z7502

== ENCOUNTER 2017-09-04 21:18 | Emergency (ER) | payer MEDICAID ==
[~2017-09-04] VITALS: Ht 154.9 cm; Wt 67.1 kg
[~2017-09-04 21:18] MED LIST changes: +NORCO 7.5-3251 EACH ORAL; +SILVADENE20 GM TP
--- NOTE | 2017-09-04 21:37 | Emergency Room Report ---
History of Present Illness General Chief Complaint: Abdominal Pain Source: Patient Present Illness HPI Patient presents with complaints of mid abdominal periumbilical pain that started about 2 hours prior to arrival Patient reports increased nausea Denies any fevers denies any vomiting or diarrhea denies any chest pain or shortness of breath Patient reports 3 days of left-sided ear pain Denies any neck pain or visual changes Denies any photophobia Pain in the mid abdominal area is 5 out of 10 denies any change with position Allergies: Coded Allergies: PENICILLINS (Verified Allergy, Intermediate, TACHYCARDIA, 03/30/16) Patient History Past Medical History: see triage record Pertinent Family History: none Now: No Reviewed Nursing Documentation: PMH: Agreed; PSxH: Agreed Nursing Documentation-PMH Past Medical History: No Stated History Hx Cardiac Problems: No Hx Asthma: Yes Hx Cancer: No Hx Gastrointestinal Problems: Yes Hx Neurological Problems: No Review of Systems All Other Systems: negative except mentioned in HPI Physical Exam Vital Signs Date Time Temp Pulse Resp B/P (MAP) Pulse Ox O2 Delivery O2 Flow Rate FiO2 09/04/17 21:22 98.1 80 16 135/89 98 Room Air 98.1 Sp02 EP Interpretation: reviewed, normal General Appearance: mild distress - uncomfortable Head: normocephalic, atraumatic Eyes: bilateral eye PERRL, bilateral eye EOMI ENT: hearing grossly normal, normal pharynx, TMs + canals normal, uvula midline Neck: full range of motion, supple, no meningismus, no bony tend Respiratory: lungs clear, normal breath sounds, no rhonchi, no respiratory distress, no retraction, no accessory muscle use Cardiovascular #1: normal peripheral pulses, regular rate, rhythm, no edema, no gallop, no JVD, no murmur Gastrointestinal: normal bowel sounds, soft, no mass, no organomegaly, non- distended, no guarding, no hernia, no pulsatile mass, no rebound, tenderness - Mid abdomen supra umbilical Genitourinary: no CVA tenderness Musculoskeletal: normal inspection Neurologic: oriented x3, responsive, harness and bag inspector III-XII nml as tested, motor strength/ tone normal, sensory intact Psychiatric: mood/affect normal Skin: normal color, no rash, warm/dry, palpation normal Lymphatic: normal inspection, no adenopathy Medical Decision Making Diagnostic Impression: Primary Impression: Abdominal pain ER Course With the history exam and presentation, multiple differentials considered, including but not limited to appendicitis, gastritis, cholecystitis, diverticulitis Patient has had previous appendectomy at this facility The is also at bedside and reports that earlier the patient had become angry at her son which started her discomfort Patient continues to rest well labs are within normal limits repeat abdominal exam is also soft and patient stable for close outpatient follow-up Labs Test 09/04/17 21:23 White Blood Count 9.5 K/UL (4.8-10.8) Red Blood Count 4.87 M/UL (4.20-5.40) Hemoglobin 15.2 G/DL (12.0-16.0) Hematocrit 44.8 % (37.0-47.0) Mean Corpuscular Volume 92 FL (80-99) Mean Corpuscular Hemoglobin 31.2 PG (27.0-31.0) Mean Corpuscular Hemoglobin Concent 34.0 G/DL (32.0-36.0) Red Cell Distribution Width 11.8 % (11.6-14.8) Platelet Count 329 K/UL (150-450) Mean Platelet Volume 5.7 FL (6.5-10.1) Neutrophils (%) (Auto) 51.3 % (45.0-75.0) Lymphocytes (%) (Auto) 37.8 % (20.0-45.0) Monocytes (%) (Auto) 7.5 % (1.0-10.0) Eosinophils (%) (Auto) 1.8 % (0.0-3.0) Basophils (%) (Auto) 1.6 % (0.0-2.0) Urine Color Pale yellow Urine Appearance Clear Urine pH 7 (4.5-8.0) Urine Specific [place] 1.010 (1.005-1.035) Urine Protein Negative (NEGATIVE) Urine Glucose (UA) Negative (NEGATIVE) Urine Ketones Negative (NEGATIVE) Urine Occult Blood 1+ (NEGATIVE) Urine Nitrite Negative (NEGATIVE) Urine Bilirubin Negative (NEGATIVE) Urine Urobilinogen Normal MG/DL (0.0-1.0) Urine Leukocyte Esterase Negative (NEGATIVE) Urine RBC 0-2 /HPF (0 - 2) Urine WBC 0-2 /HPF (0 - 2) Urine Squamous Epithelial Cells Few /LPF (NONE/OCC) Urine Bacteria Few /HPF (NONE) Urine HCG, Qualitative Negative (NEGATIVE) Sodium Level 138 MMOL/L (136-145) Potassium Level 5.7 MMOL/L (3.5-5.1) Chloride Level 104 MMOL/L (98-107) Carbon Dioxide Level 28 MMOL/L (21-32) Anion Gap 6 mmol/L (5-15) Blood Urea Nitrogen 17 mg/dL (7-18) Creatinine 0.6 MG/DL (0.55-1.30) Estimat Glomerular Filtration Rate > 60 mL/min (>60) Glucose Level 103 MG/DL (74-106) Calcium Level 9.1 MG/DL (8.5-10.1) Total Bilirubin 0.4 MG/DL (0.2-1.0) Aspartate Amino Transf (AST/SGOT) 48 U/L (15-37) Alanine Aminotransferase (ALT/SGPT) 32 U/L (12-78) Alkaline Phosphatase 114 U/L (46-116) Total Protein 8.1 G/DL (6.4-8.2) Albumin 3.9 G/DL (3.4-5.0) Globulin 4.2 g/dL Albumin/Globulin Ratio 0.9 (1.0-2.7) Lipase 98 U/L (73-393) Last Vital Signs Date Time Temp Pulse Resp B/P (MAP) Pulse Ox O2 Delivery O2 Flow Rate FiO2 09/04/17 21:22 98.1 80 16 135/89 98 Room Air 98.1 Status: improved Disposition: HOME, SELF-CARE Condition: Improved Scripts Famotidine (PEPCID AC) 20 Mg Tablet 20 MG PO DAILY for 10 Days, TAB Prov: Jumana Caal DO 09/04/17 Additional Instructions: Patient is provided with the discharge instructions notified to follow up with primary doctor in the next 2-3 days otherwise return to the er with any worsening symptoms. Please note that this report is being documented using [employer] technology. This can lead to erroneous entry secondary to incorrect interpretation by the dictating instrument. Jumana Caal DO Sep 04, 2017 21:37
[2017-09-04] MEDS ORDERED: Morphine Sulfate 4mg/ml Inj IVP ONE (21:45)
[2017-09-04 21:59] LABS: BASOPHILS % (AUTO) 1.6 % (0.0-2.0); EOSINOPHILS % (AUTO) 1.8 % (0.0-3.0); HEMATOCRIT 44.8 % (37.0-47.0); HEMOGLOBIN 15.2 G/DL (12.0-16.0); LYMPHOCYTES % (AUTO) 37.8 % (20.0-45.0); MEAN CORPUSCULAR VOLUME 92 FL (80-99); MONOCYTES % (AUTO) 7.5 % (1.0-10.0); NEUTROPHILS % (AUTO) 51.3 % (45.0-75.0); PLATELET COUNT 329 K/UL (150-450); RED BLOOD COUNT 4.87 M/UL (4.20-5.40); RED CELL DISTRIBUTION WIDTH 11.8 % (11.6-14.8); WHITE BLOOD COUNT 9.5 K/UL (4.8-10.8)
[2017-09-04 22:00] LABS: APPEARANCE,URINE CLEAR; BILIRUBIN, URINE NEGATIVE (NEGATIVE); COLOR,URINE PALE YELLOW; GLUCOSE, URINE (UA) NEGATIVE (NEGATIVE); KETONES,URINE NEGATIVE (NEGATIVE); LEUKOCYTE ESTERASE ,URINE NEGATIVE (NEGATIVE); NITRITE,URINE NEGATIVE (NEGATIVE); PH,URINE 7 (4.5-8.0); PROTEIN,URINE NEGATIVE (NEGATIVE); UROBILINOGEN,URINE NORMAL MG/DL (0.0-1.0)
[2017-09-04 22:17] LABS: ALANINE AMINOTRANSFERASE 32 U/L (12-78); ALBUMIN 3.9 G/DL (3.4-5.0); ALBUMIN/GLOBULIN RATIO 0.9 (1.0-2.7); ALKALINE PHOSPHATASE 114 U/L (46-116); ANION GAP 6 mmol/L (5-15); ASPARTATE AMINO TRANSFERASE 48 U/L (15-37); BILIRUBIN,TOTAL 0.4 MG/DL (0.2-1.0); BLOOD UREA NITROGEN 17 mg/dL (7-18); CALCIUM 9.1 MG/DL (8.5-10.1); CARBON DIOXIDE 28 MMOL/L (21-32); CHLORIDE 104 MMOL/L (98-107); CREATININE 0.6 MG/DL (0.55-1.30); SODIUM 138 MMOL/L (136-145)
[2017-09-04 22:18] LABS: POTASSIUM 5.7 MMOL/L (3.5-5.1)
[2017-09-04] MEDS ORDERED: PEPCID AC20 M2 PO (23:39)
[2017-09-04 23:52] VITALS: BP 113/78
[2017-09-04 23:53] VITALS: BP 113/78
== END 2017-09-04 23:53 | disposition home or self-care (01) ==
LOC: EMR 21:35
DX: R10.9 Unspecified abdominal pain (principal); J45.909 Unspecified asthma, uncomplicated; Z88.0 Allergy status to penicillin
CPT/HCPCS: 36415; 80053; 81003; 81025; 83690; 85025; 96374; 96375; 99283; J2270; J2405

== ENCOUNTER 2017-09-06 23:18 | Emergency (ER) | payer MEDICAID ==
[~2017-09-06] VITALS: Ht 154.9 cm; Wt 65.8 kg
[~2017-09-06 23:18] MED LIST changes: +PEPCID AC20 M2 PO
[2017-09-06 23:41] VITALS: BP 127/74
[2017-09-07] MEDS ORDERED: Isovue-300 100ml vial INJ PRN
--- NOTE | 2017-09-07 00:04 | Emergency Room Report ---
History of Present Illness General Chief Complaint: Abdominal Pain Source: Patient Present Illness HPI Is a 46 her female with a history of prior appendectomy. She presents with chief complaint abdominal pain his been ongoing for 3 days now. She was here on Tuesday for the same thing. Labs unremarkable. She was discharged home after pain medication and fell better. Since then she still having this periumbilical pain crampy in nature. 7 out of 10. No radiation. Roebling nauseous but no vomiting. No diarrhea. No fever or chills. Nothing made it better. Nothing made it worse. Allergies: Coded Allergies: PENICILLINS (Verified Allergy, Intermediate, TACHYCARDIA, 09/06/17) Patient History Past Medical History: see triage record, old chart reviewed Past Surgical History: appy Pertinent Family History: none Social History: Denies: smoking Last Menstrual Period: n/a Now: No Immunizations: other Reviewed Nursing Documentation: PMH: Agreed; PSxH: Agreed Nursing Documentation-PMH Hx Cardiac Problems: No Hx Asthma: Yes Hx Cancer: No Hx Gastrointestinal Problems: Yes Hx Neurological Problems: No Review of Systems Eye: Denies: eye pain, blurred vision ENT: Denies: ear pain, nose congestion, throat swelling Respiratory: Denies: cough, shortness of breath Cardiovascular: Denies: chest pain, palpitations Gastrointestinal: Reports: abdominal pain; Denies: diarrhea, nausea, vomiting Musculoskeletal: Denies: back pain, joint pain Skin: Denies: rash Neurological: Denies: headache, numbness Endocrine: Denies: increased thirst, increased urine Hematologic/Lymphatic: Denies: easy bruising All Other Systems: negative except mentioned in HPI Physical Exam Vital Signs Date Time Temp Pulse Resp B/P (MAP) Pulse Ox O2 Delivery O2 Flow Rate FiO2 09/06/17 23:19 97.8 66 16 128/79 97 Room Air 97.9 vitals is normal Sp02 EP Interpretation: reviewed, normal General Appearance: well appearing, no apparent distress, alert Head: normocephalic, atraumatic Eyes: bilateral eye PERRL, bilateral eye EOMI ENT: hearing grossly normal, normal pharynx Neck: full range of motion, supple, no meningismus Respiratory: chest non-tender, lungs clear, normal breath sounds Cardiovascular #1: regular rate, rhythm, no murmur Gastrointestinal: no mass, no organomegaly, no bruit, non-distended, abnormal bowel sounds - hyperactive, tenderness - periumbilical Musculoskeletal: back normal, gait/station normal, normal range of motion Psychiatric: mood/affect normal Skin: warm/dry Medical Decision Making Diagnostic Impression: Primary Impression: Abdominal pain Qualified Codes: R10.84 - Generalized abdominal pain Additional Impressions: UTI (urinary tract infection) Qualified Codes: N30.00 - Acute cystitis without hematuria Enterocolitis ER Course Issue with abdominal pain with nausea but no vomiting. CT scan consistent with enterocolitis probably viral in nature. She does have a urinary tract infection. No evidence of an acute abdomen. No evidence of obstruction. Patient felt better. We'll discharge home. Lab Results Impression labs unremarkable CT/MRI/US Diagnostic Results CT/MRI/US Diagnostic Results : Imaging Test Ordered: CT abdomen and pelvis Impression read by radiologist. Fluid levels throughout large and small bowel without obstruction. Last Vital Signs Date Time Temp Pulse Resp B/P (MAP) Pulse Ox O2 Delivery O2 Flow Rate FiO2 09/06/17 23:41 97.9 61 15 127/74 98 Room Air 97.9 Status: improved Disposition: HOME, SELF-CARE Condition: Stable Scripts Ondansetron (Zofran) 4 Mg Tablet 4 MG ORAL Q6H PRN for Nausea & Vomiting, #10 TAB 0 Refills Prov: KATELYN VELÁZQUEZ M.D. 09/07/17 Ibuprofen* (MOTRIN*) 600 Mg Tablet 600 MG ORAL THREE TIMES A DAY, #30 TAB 0 Refills Prov: KATELYN VELÁZQUEZ M.D. 09/07/17 Ciprofloxacin Hcl* (CIPROFLOXACIN HCL*) 500 Mg Tablet 500 MG ORAL Q12H, #14 TAB 0 Refills Prov: KATELYN VELÁZQUEZ M.D. 09/07/17 Additional Instructions: follow-up with your DrBlu in 2-3 days if not better. Return if symptoms worsen. KATELYN VELÁZQUEZ M.D. Sep 07, 2017 00:04
[2017-09-07 00:10] LABS: APPEARANCE,URINE CLEAR; BILIRUBIN, URINE NEGATIVE (NEGATIVE); COLOR,URINE PALE YELLOW; GLUCOSE, URINE (UA) NEGATIVE (NEGATIVE); KETONES,URINE NEGATIVE (NEGATIVE); LEUKOCYTE ESTERASE ,URINE 1+ (NEGATIVE); NITRITE,URINE NEGATIVE (NEGATIVE); PH,URINE 6 (4.5-8.0); PROTEIN,URINE 1+ (NEGATIVE); UROBILINOGEN,URINE NORMAL MG/DL (0.0-1.0)
[2017-09-07 00:10] LABS: BASOPHILS % (AUTO) 0.2 % (0.0-2.0); HEMATOCRIT 40.2 % (37.0-47.0); HEMOGLOBIN 13.8 G/DL (12.0-16.0); LYMPHOCYTES % (AUTO) 16.3 % (20.0-45.0); MEAN CORPUSCULAR VOLUME 93 FL (80-99); MONOCYTES % (AUTO) 4.3 % (1.0-10.0); NEUTROPHILS % (AUTO) 79.2 % (45.0-75.0); PLATELET COUNT 348 K/UL (150-450); RED BLOOD COUNT 4.33 M/UL (4.20-5.40); RED CELL DISTRIBUTION WIDTH 11.3 % (11.6-14.8)
[2017-09-07 00:17] LABS: ANION GAP 10 mmol/L (5-15); BLOOD UREA NITROGEN 15 mg/dL (7-18); CALCIUM 8.9 MG/DL (8.5-10.1); CARBON DIOXIDE 27 MMOL/L (21-32); CHLORIDE 105 MMOL/L (98-107); CREATININE 0.8 MG/DL (0.55-1.30); POTASSIUM 3.6 MMOL/L (3.5-5.1); SODIUM 142 MMOL/L (136-145)
[2017-09-07 00:23] LABS: ALANINE AMINOTRANSFERASE 31 U/L (12-78); ALBUMIN 4.1 G/DL (3.4-5.0); ALKALINE PHOSPHATASE 99 U/L (46-116); ASPARTATE AMINO TRANSFERASE 16 U/L (15-37); BILIRUBIN,TOTAL 0.3 MG/DL (0.2-1.0)
[2017-09-07] MEDS ORDERED: cefTRIAXone 1 GM in NS 55 ML IVPB ONE (00:30)
[2017-09-07] MEDS ORDERED: Ketorolac 30mg Inj IV ONE ×2 (02:15)
[2017-09-07] MEDS ORDERED: Morphine Sulfate 4mg/ml Inj IVP ONE (02:15)
[2017-09-07 02:20] VITALS: BP 127/77
[2017-09-07] MEDS ORDERED: CIPROFLOXACIN500 M2 ORAL (02:33)
[2017-09-07] MEDS ORDERED: IBUPROFEN600 MG ORAL (02:33)
[2017-09-07] MEDS ORDERED: ZOFRAN4 MG ORAL (02:33)
[2017-09-07 02:43] VITALS: BP 127/77
--- NOTE | 2017-09-07 09:46 | Diagnostic Imaging Report ---
Clinical Indication: Abdominal pain for 2 days Technique: No oral contrast utilized, per emergency room physician request IV administration nonionic contrast. Venous phase spiral acquisition obtained through the abdomen and pelvis. Multiplanar reconstructions were generated. Total dose length product 690.7 mGycm. CTDIvol(s) 12.54 mGy. Dose reduction achieved using automated exposure control Comparison: 10/14/2016 Findings: Patient has undergone interim appendectomy. Prominent pericecal lymph nodes are again demonstrated, appearing slightly more prominent than on the prior study. The colon contains a moderate amount of fluid. No evidence of diverticulosis or diverticulitis. Small bowel loops are diffusely mildly prominent distally, containing a moderate amount of fluid. No carolyne small bowel distention or transition point. No free or loculated intraperitoneal air or fluid. The distal esophagus, stomach, duodenum are unremarkable. The liver demonstrates a 9 mm diameter hyperenhancing focus in segment 3, not clearly evident previously, patient appears to been scanned in earlier phase of enhancement than previously. There is some focal fatty infiltration in the usual location adjacent to the falciform ligament, also previously evident. There is also some subtle geographic fatty infiltration involving segment IVb of the liver. There is a subtle focus of increased enhancement posteriorly in segment 7, image 18 of series 3, measuring 9 mm diameter. The gallbladder, bile ducts, pancreas, spleen, adrenals, right kidney are unremarkable. The left kidney demonstrates multiple cysts. No retroperitoneal or mesenteric mass or adenopathy. No pelvic mass or adenopathy. The included lung bases demonstrate posterior dependent atelectatic changes. There are bilateral breast implants. The bones are unremarkable. Impression: Fluid in large and small bowel, could indicate mild enteritis/colitis changes. No evidence of bowel obstruction. This agrees with the preliminary interpretation provided overnight by [facility] teleradiology service No other acute abnormality 2 hyperenhancing liver lesions, as described. Most likely representing transient hepatic attenuation differences, focal arterioportal shunting or atypical hemangiomas, but other etiologies are not completely excludable. Recommend liver specific MRI or three-phase CT for further evaluation. This was discussed by phone with Dr. Oviedo at the time of interpretation Areas of hepatic fatty infiltration, as described Other findings as noted, including left renal cysts, posterior dependent atelectatic changes, bilateral breast implants The CT scanner at [facility] is accredited by the [employer] and the scans are performed using protocols designed to limit radiation exposure to as low as reasonably achievable to attain images of sufficient resolution adequate for diagnostic evaluation.
== END 2017-09-07 02:45 | disposition home or self-care (01) ==
LOC: EMR 23:40
DX: R10.9 Unspecified abdominal pain (principal); N39.0 Urinary tract infection, site not specified; K52.9 Noninfective gastroenteritis and colitis, unspecified; J45.909 Unspecified asthma, uncomplicated; Z88.0 Allergy status to penicillin
CPT/HCPCS: 36415; 74177; 80053; 81003; 81025; 83690; 85025; 87086; 87181; 96361; 96365; 96374; 96375; 96376; 99284; J0696; J1885; J2405; Q9967

== ENCOUNTER 2018-01-20 19:22 | Emergency (ER) | payer SELFPAY ==
[~2018-01-20] VITALS: Ht 154.9 cm; Wt 69.9 kg
[~2018-01-20 19:22] MED LIST changes: +CIPROFLOXACIN500 M2 ORAL; +ZOFRAN4 MG ORAL
[2018-01-20] MEDS ORDERED: NKM (19:43)
[2018-01-20 19:46] VITALS: BP 136/80
[2018-01-20] MEDS ORDERED: Isovue-300 100ml vial INJ PRN (20:00)
[2018-01-20] MEDS ORDERED: Ketorolac 30mg Inj IV ONE (20:00)
[2018-01-20 20:36] LABS: BASOPHILS % (AUTO) 0.8 % (0.0-2.0); EOSINOPHILS % (AUTO) 0.9 % (0.0-3.0); HEMATOCRIT 42.8 % (37.0-47.0); HEMOGLOBIN 14.8 G/DL (12.0-16.0); LYMPHOCYTES % (AUTO) 14.8 % (20.0-45.0); MEAN CORPUSCULAR VOLUME 93 FL (80-99); NEUTROPHILS % (AUTO) 77.5 % (45.0-75.0); PLATELET COUNT 336 K/UL (150-450); RED BLOOD COUNT 4.59 M/UL (4.20-5.40); RED CELL DISTRIBUTION WIDTH 11.5 % (11.6-14.8); WHITE BLOOD COUNT 9.5 K/UL (4.8-10.8)
[2018-01-20 20:40] LABS: APPEARANCE,URINE CLEAR; BILIRUBIN, URINE NEGATIVE (NEGATIVE); GLUCOSE, URINE (UA) NEGATIVE (NEGATIVE); KETONES,URINE NEGATIVE (NEGATIVE); LEUKOCYTE ESTERASE ,URINE NEGATIVE (NEGATIVE); NITRITE,URINE NEGATIVE (NEGATIVE); PH,URINE 7 (4.5-8.0); PROTEIN,URINE NEGATIVE (NEGATIVE); UROBILINOGEN,URINE NORMAL MG/DL (0.0-1.0)
[2018-01-20 20:44] LABS: ANION GAP 10 mmol/L (5-15); BLOOD UREA NITROGEN 20 mg/dL (7-18); CALCIUM 8.9 MG/DL (8.5-10.1); CARBON DIOXIDE 27 MMOL/L (21-32); CHLORIDE 105 MMOL/L (98-107); COLOR,URINE YELLOW; CREATININE 0.9 MG/DL (0.55-1.30); POTASSIUM 3.6 MMOL/L (3.5-5.1); SODIUM 142 MMOL/L (136-145)
[2018-01-20 20:48] LABS: ALANINE AMINOTRANSFERASE 33 U/L (12-78); ALBUMIN 3.9 G/DL (3.4-5.0); ALKALINE PHOSPHATASE 114 U/L (46-116); ASPARTATE AMINO TRANSFERASE 22 U/L (15-37); BILIRUBIN,TOTAL 0.6 MG/DL (0.2-1.0)
[2018-01-20] MEDS ORDERED: Morphine Sulfate 4mg/ml Inj (IV/IM USE ONLY) IVP ONE (21:00)
--- NOTE | 2018-01-20 21:45 | Diagnostic Imaging Report ---
EXAM: CT Abdomen and Pelvis With Intravenous Contrast CLINICAL HISTORY: PAIN TECHNIQUE: Axial computed tomography images of the abdomen and pelvis with intravenous contrast. CTDI is 0.15, 13.68 mGy and DLP is 742 mGy-cm. One or more of the following dose reduction techniques were used: automated exposure control, adjustment of the mA and/or kV according to patient size, use of iterative reconstruction technique. Coronal and sagittal reformatted images were created and reviewed. COMPARISON: 09/07/17 FINDINGS: Lung bases: Mild atelectasis at the lung bases. ABDOMEN: Liver: Question of some fatty infiltration of the liver. The previously seen areas of increased enhancement in the liver are not clearly appreciated on the current exam. Gallbladder and bile ducts: The gallbladder is unremarkable. No calcified stones. No ductal dilation. Pancreas: The pancreas is unremarkable. No ductal dilation. Spleen: The spleen is unremarkable. Adrenals: The adrenals are unremarkable. Kidneys and ureters: 2 low-density lesions in the left kidney suggestive of cysts. The largest measures 1.6 cm. Stomach and bowel: No evidence for bowel related inflammatory changes. No evidence for significant bowel loop dilation to suggest an obstructive process. PELVIS: Appendix: The appendix is not visualized. Bladder: The bladder is grossly unremarkable. Reproductive: The uterus is grossly unremarkable. ABDOMEN and PELVIS: Intraperitoneal space: No free intraperitoneal fluid or free intraperitoneal gas. Bones/joints: Mild degenerative changes of the thoracolumbar spine. No acute fracture. No dislocation. Soft tissues: Bilateral breast implants. Small umbilical hernia containing fat only. Vasculature: Unremarkable. No abdominal aortic aneurysm. Lymph nodes: Unremarkable. No enlarged lymph nodes. IMPRESSION: Question of some fatty infiltration of the liver.
[2018-01-20 22:30] VITALS: BP 128/73
[2018-01-20] MEDS ORDERED: NORCO 5-325 TA1 EACH ORAL (22:30)
[2018-01-20] MEDS ORDERED: ZOFRAN4 MG ORAL (22:30)
--- NOTE | 2018-01-23 21:27 | Emergency Room Report ---
History of Present Illness General Chief Complaint: Abdominal Pain Source: Patient Present Illness HPI Patient is a 47-year-old female presented after increased lower abdominal pain. Patient reports having had pain for several weeks. This had gradually worsened. She denies any fever. She reports having increased pain with ambulation. She denies any the dysuria or hematuria. She denies vomiting or diarrhea. Allergies: Coded Allergies: PENICILLINS (Verified Allergy, Intermediate, TACHYCARDIA, 09/06/17) Patient History Past Medical History: see triage record Last Menstrual Period: n/a Reviewed Nursing Documentation: PMH: Agreed; PSxH: Agreed Nursing Documentation-PMH Past Medical History: No History, Except For Hx Cardiac Problems: No Hx Asthma: No Hx Cancer: No Hx Gastrointestinal Problems: Yes Hx Neurological Problems: No Review of Systems All Other Systems: negative except mentioned in HPI Physical Exam Vital Signs Date Time Temp Pulse Resp B/P (MAP) Pulse Ox O2 Delivery O2 Flow Rate FiO2 01/20/18 19:38 98.8 98 16 136/80 98 Room Air 98.8 Sp02 EP Interpretation: reviewed, normal General Appearance: normal inspection, well appearing, no apparent distress, alert, GCS 15 Head: atraumatic ENT: normal ENT inspection, hearing grossly normal, normal voice Neck: normal inspection, full range of motion, supple, no bony tend Respiratory: normal inspection, lungs clear, normal breath sounds, no respiratory distress, no retraction, no wheezing Cardiovascular #1: regular rate, rhythm, no edema Gastrointestinal: normal inspection, normal bowel sounds, non tender, soft, no guarding, no hernia Genitourinary: no CVA tenderness Musculoskeletal: normal inspection, back normal, normal range of motion Neurologic: normal inspection, alert, oriented x3, responsive, tin stacker III-XII nml as tested, speech normal Psychiatric: normal inspection, judgement/insight normal, mood/affect normal Skin: normal inspection, normal color, no rash Medical Decision Making Diagnostic Impression: Primary Impression: Abdominal pain ER Course Patient presented for abdominal pain. Differential diagnoses included ischemic bowel, appendicitis, perforated viscus, abdominal aortic aneurysm, inferior myocardial infarction, viral gastroenteritis. Because of complexity of patient' s case laboratory testing and imaging studies were ordered. CT imaging of the abdomen pelvis read by radiology showed no evidence of acute intra-abdominal pathology. The laboratory studies are unremarkable.Patient noted have evidence of fatty liver.The patient was given pain medications with improvement in her symptoms. Patient is advised follow-up with primary care physician for reexamination.The patient is advised to follow up with primary care doctor in 1-2 days. Patient is advised to return if any worsening condition or if any changes in status that are concerning. This report is dictated with [employer] social work instructor software which may occasionally lead to discrepancies related to use of this software. Labs Test 01/20/18 20:15 White Blood Count 9.5 K/UL (4.8-10.8) Red Blood Count 4.59 M/UL (4.20-5.40) Hemoglobin 14.8 G/DL (12.0-16.0) Hematocrit 42.8 % (37.0-47.0) Mean Corpuscular Volume 93 FL (80-99) Mean Corpuscular Hemoglobin 32.2 PG (27.0-31.0) Mean Corpuscular Hemoglobin Concent 34.5 G/DL (32.0-36.0) Red Cell Distribution Width 11.5 % (11.6-14.8) Platelet Count 336 K/UL (150-450) Mean Platelet Volume 5.3 FL (6.5-10.1) Neutrophils (%) (Auto) 77.5 % (45.0-75.0) Lymphocytes (%) (Auto) 14.8 % (20.0-45.0) Monocytes (%) (Auto) 6.0 % (1.0-10.0) Eosinophils (%) (Auto) 0.9 % (0.0-3.0) Basophils (%) (Auto) 0.8 % (0.0-2.0) Prothrombin Time 10.3 SEC (9.30-11.50) Prothromb Time International Ratio 1.0 (0.9-1.1) Activated Partial Thromboplast Time 27 SEC (23-33) Urine Color Yellow Urine Appearance Clear Urine pH 7 (4.5-8.0) Urine Specific [place] 1.010 (1.005-1.035) Urine Protein Negative (NEGATIVE) Urine Glucose (UA) Negative (NEGATIVE) Urine Ketones Negative (NEGATIVE) Urine Blood 4+ (NEGATIVE) Urine Nitrite Negative (NEGATIVE) Urine Bilirubin Negative (NEGATIVE) Urine Urobilinogen Normal MG/DL (0.0-1.0) Urine Leukocyte Esterase Negative (NEGATIVE) Urine RBC 5-10 /HPF (0 - 2) Urine WBC 0-2 /HPF (0 - 2) Urine Squamous Epithelial Cells Few /LPF (NONE/OCC) Urine Bacteria Few /HPF (NONE) Sodium Level 142 MMOL/L (136-145) Potassium Level 3.6 MMOL/L (3.5-5.1) Chloride Level 105 MMOL/L (98-107) Carbon Dioxide Level 27 MMOL/L (21-32) Anion Gap 10 mmol/L (5-15) Blood Urea Nitrogen 20 mg/dL (7-18) Creatinine 0.9 MG/DL (0.55-1.30) Estimat Glomerular Filtration Rate > 60 mL/min (>60) Glucose Level 99 MG/DL (74-106) Calcium Level 8.9 MG/DL (8.5-10.1) Total Bilirubin 0.6 MG/DL (0.2-1.0) Aspartate Amino Transf (AST/SGOT) 22 U/L (15-37) Alanine Aminotransferase (ALT/SGPT) 33 U/L (12-78) Alkaline Phosphatase 114 U/L (46-116) Troponin I 0.000 ng/mL (0.000-0.056) Total Protein 7.9 G/DL (6.4-8.2) Albumin 3.9 G/DL (3.4-5.0) Globulin 4.0 g/dL Albumin/Globulin Ratio 1.0 (1.0-2.7) Last Vital Signs Date Time Temp Pulse Resp B/P (MAP) Pulse Ox O2 Delivery O2 Flow Rate FiO2 01/20/18 22:30 98.2 83 16 128/73 98 Room Air 98.8 Status: improved Disposition: HOME, SELF-CARE Condition: Stable Scripts Ondansetron (Zofran) 4 Mg Tablet 4 MG ORAL Q6H PRN for Nausea & Vomiting, #30 TAB 0 Refills Prov: Demetrio Mark MD 01/20/18 Hydrocodone Bit/Acetaminophen 5-325* (NORCO 5-325*) 1 Each Tablet 1 TAB ORAL Q6H PRN for For Pain, #10 TAB 0 Refills Prov: Demetrio Mark MD 01/20/18 Referrals: NON PHYSICIAN (PCP) Patient Instructions: Abdominal Pain, Adult Demetrio Mark MD Jan 23, 2018 21:27
== END 2018-01-20 22:30 | disposition home or self-care (01) ==
LOC: EMR 21:03
DX: R10.30 Lower abdominal pain, unspecified (principal); Z88.0 Allergy status to penicillin
CPT/HCPCS: 36415; 74177; 80053; 81003; 84484; 85025; 85610; 85730; 96374; 96375; 99284; J1885; J2405; Q9967

== ENCOUNTER 2018-05-14 18:18 | Emergency (ER) | payer MEDICAID ==
[~2018-05-14] VITALS: Ht 154.9 cm; Wt 64.4 kg
[~2018-05-14 18:18] MED LIST changes: +HYDROCODON-ACE1 EA15 ORAL
[2018-05-14 19:00] VITALS: BP 124/87
--- NOTE | 2018-05-14 19:00 | NUR ---
ED Nurse Note: recieved pt on chair with c/o of left earache x 3 week. pt is complaining of 8/10 pain. denies dizziness. denies taking medication. seen by tha suero. will continue to monitor.
--- NOTE | 2018-05-14 19:14 | Emergency Room Report ---
History of Present Illness General Chief Complaint: Earache Source: Patient, Medical Record Present Illness HPI 47-year-old female presents to the emergency department complaining of 8 out of 10 in severity left ear pain 1 week. Patient was evaluated and treated for otitis externa as well as otitis media 4 days ago. Patient states that she has been taking Ciprodex antibiotics as well as clindamycin orally she states she has had no relief of her symptoms. Patient reports she feels that her ear pain is getting worse. She denies history of diabetes or immune compromise. Denies fevers or chills. Denies swollen tender lymph nodes or swelling of the soft tissues near the ear. Patient denies loss of hearing or significant changes to her ability to hear. She has no other complaints at this time no aggravating or relieving factors. Allergies: Coded Allergies: PENICILLINS (Verified Allergy, Intermediate, TACHYCARDIA, 09/06/17) Patient History Past Medical History: see triage record Past Surgical History: none Pertinent Family History: none Now: No Immunizations: UTD Reviewed Nursing Documentation: PMH: Agreed; PSxH: Agreed Nursing Documentation-PMH Hx Cardiac Problems: No Hx Asthma: No Hx Cancer: No Hx Gastrointestinal Problems: Yes Hx Neurological Problems: No Review of Systems All Other Systems: negative except mentioned in HPI Physical Exam Vital Signs Date Time Temp Pulse Resp B/P (MAP) Pulse Ox O2 Delivery O2 Flow Rate FiO2 05/14/18 18:24 97.9 77 17 124/87 99 Room Air Sp02 EP Interpretation: reviewed, normal General Appearance: no apparent distress, alert, GCS 15, non-toxic Head: normocephalic, atraumatic Eyes: bilateral eye normal inspection, bilateral eye PERRL ENT: hearing grossly normal, normal voice, uvula midline, moist mucus membranes , nasal congestion, other - Left ear Canal is erythematous and swollen in appearance with thick/ dry/ d/c noted, no TM involvement, no evidence of mastoiditis or preauricular LAD on PE Neck: full range of motion, no bony tend Respiratory: lungs clear, normal breath sounds, speaking full sentences Cardiovascular #1: regular rate, rhythm Musculoskeletal: back normal, gait/station normal, normal range of motion, non- tender Neurologic: alert, oriented x3, responsive, motor strength/tone normal, sensory intact, speech normal, grossly normal Psychiatric: judgement/insight normal Skin: normal color, no rash, warm/dry, well hydrated Lymphatic: no adenopathy Medical Decision Making PA Attestation Dr. Caal is my supervising Physician whom patient management has been discussed with. Diagnostic Impression: Primary Impression: Otitis externa Qualified Codes: H60.502 - Unspecified acute noninfective otitis externa, left ear ER Course 47-year-old female presents to the emergency department complaining of 8 out of 10 in severity left ear pain 1 week. Patient was evaluated and treated for otitis externa as well as otitis media 4 days ago. Patient states that she has been taking Ciprodex antibiotics as well as clindamycin orally she states she has had no relief of her symptoms. Patient reports she feels that her ear pain is getting worse. She denies history of diabetes or immune compromise. Denies fevers or chills. Denies swollen tender lymph nodes or swelling of the soft tissues near the ear. Patient denies loss of hearing or significant changes to her ability to hear. She has no other complaints at this time no aggravating or relieving factors. Ddx considered but are not limited to OM, OE, mastoiditis, TM perforation, FB Vital signs: are WNL, pt. is afebrile H&PE are most consistent with otitis externa ORDERS: none required at this time, the diagnosis is clinical -OTOSCOPY: Left ear Canal is erythematous and swollen in appearance with thick/ dry/ d/c noted, no TM involvement, no evidence of mastoiditis or preauricular LAD on PE ED INTERVENTIONS: -Toradol IM Pt. treated with abx, due to appearance of D/C suspicious for fungal source. will treat with acetic acid. pt. instructed to have ENT evaluation if symptoms persist. DISCHARGE: At this time pt. is stable for d/c to home. With Otic ABX. Will provide printed patient care instructions, and any necessary prescriptions. Care plan and follow up instructions have been discussed with the patient prior to discharge. Last Vital Signs Date Time Temp Pulse Resp B/P (MAP) Pulse Ox O2 Delivery O2 Flow Rate FiO2 05/14/18 19:00 97.9 99 17 124/87 99 Room Air Disposition: HOME, SELF-CARE Condition: Stable Scripts Acetaminophen* (TYLENOL EXTRA STRENGTH*) 500 Mg Tablet 500 MG ORAL Q6H PRN for Mild Pain/Temp > 100.5, #20 TAB 0 Refills Prov: Sonia Jacques 05/14/18 Acetic Acid/Hydrocortisone (HYDROCORTISON-ACETIC ACID SOLN) 10 Ml Drops 5 DROP OT TID for 10 Days, #10 ML Prov: Sonia Jacques 05/14/18 Patient Instructions: Otitis Externa, [id number] Additional Instructions: Take medications as directed. Follow up with a Primary Care Provider FOR ENT SPECIALIST REFERRAL in 3-5 days, even if your symptoms have resolved. --Please review list of primary care clinics, if you do not already have a primary care provider Return sooner to ED if new symptoms occur, or current symptoms become worse. - Please note that this Emergency Department Report was dictated using [employer] straightener technology software, occasionally this can lead to erroneous entry secondary to interpretation by the dictation equipment. Sonia Jacques May 14, 2018 19:14
[2018-05-14] MEDS ORDERED: HYDROCORTISON-A10 ML OT (19:24)
[2018-05-14] MEDS ORDERED: TYLENOL EXTRA500 MG ORAL (19:24)
[2018-05-14] MEDS ORDERED: Ketorolac 30mg Inj IM ONE (19:30)
--- NOTE | 2018-05-14 19:48 | NUR ---
ED Nurse Note: PT is Dc per ERMD order. pt is stable for DC. pt is alert and oriented times 4. pt left with all DC notes and prescriptions and belongings. pt is able to teach back DC notes. pt is instructed to follow up with primary MD as soon as possible. pt vital signs is stable. pt status, condition and vital signs reported to ERMD prior to DC. pt ID band removed.
[2018-05-14 19:49] VITALS: BP 122/85
== END 2018-05-14 19:50 | disposition home or self-care (01) ==
LOC: EMR 19:49
DX: H60.92 Unspecified otitis externa, left ear (principal)
CPT/HCPCS: 96372; 99283; J1885

== ENCOUNTER 2018-05-16 22:23 | Emergency (ER) | payer MEDICAID ==
[~2018-05-16] VITALS: Ht 154.9 cm; Wt 64.4 kg
[~2018-05-16 22:23] MED LIST changes: +HYDROCORTISON-A10 ML OT; +TYLENOL EXTRA500 MG ORAL
[2018-05-16] MEDS ORDERED: Morphine Sulfate 4mg/ml Inj (IV/IM USE ONLY) IM ONE (23:00)
[2018-05-16] MEDS ORDERED: BACTRIM DS TAB1 EAC1 ORAL (23:22)
[2018-05-16] MEDS ORDERED: HYDROCODON-ACE1 EA15 ORAL (23:22)
--- NOTE | 2018-05-16 23:22 | Emergency Room Report ---
History of Present Illness General Chief Complaint: Earache Source: Patient, Medical Record Present Illness HPI This is a 47-year-old female presents with chief complaint of left ear pain. His been hurting her for over a week. She was here yesterday and diagnosed with otitis externa and placed on antibiotic drops. Not getting better. Pain radiating to her head and neck. No nausea no vomiting. No fever chills but no drainage. Denies any other complaint. Pain is 10 out of 10. Allergies: Coded Allergies: PENICILLINS (Verified Allergy, Intermediate, TACHYCARDIA, 09/06/17) Patient History Past Medical History: see triage record, old chart reviewed Past Surgical History: other Pertinent Family History: none Social History: Denies: smoking Last Menstrual Period: JULY 2015 Now: No : 6 Para: 3 Immunizations: other Reviewed Nursing Documentation: PMH: Agreed; PSxH: Agreed Nursing Documentation-PMH Hx Cardiac Problems: No Hx Asthma: No Hx Cancer: No Hx Gastrointestinal Problems: Yes Hx Neurological Problems: No Review of Systems Eye: Denies: eye pain, blurred vision ENT: Reports: ear pain; Denies: nose congestion, throat swelling Respiratory: Denies: cough, shortness of breath Cardiovascular: Denies: chest pain, palpitations Gastrointestinal: Denies: abdominal pain, diarrhea, nausea, vomiting Musculoskeletal: Denies: back pain, joint pain Skin: Denies: rash Neurological: Denies: headache, numbness Endocrine: Denies: increased thirst, increased urine Hematologic/Lymphatic: Denies: easy bruising All Other Systems: negative except mentioned in HPI Physical Exam Vital Signs Date Time Temp Pulse Resp B/P (MAP) Pulse Ox O2 Delivery O2 Flow Rate FiO2 05/16/18 22:33 97.9 66 16 141/86 97 Room Air vitals normal Sp02 EP Interpretation: reviewed, normal General Appearance: well appearing, no apparent distress, alert Head: normocephalic, atraumatic Eyes: bilateral eye PERRL, bilateral eye EOMI ENT: hearing grossly normal, normal pharynx, other - Left ear: External canal show mild edema. TM is normal. There is a small abscess. Neck: full range of motion, supple, no meningismus Respiratory: chest non-tender, lungs clear, normal breath sounds Cardiovascular #1: regular rate, rhythm, no murmur Gastrointestinal: normal bowel sounds, non tender, no mass, no organomegaly, no bruit, non-distended Musculoskeletal: back normal, gait/station normal, normal range of motion Psychiatric: mood/affect normal Skin: warm/dry Medical Decision Making Diagnostic Impression: Primary Impression: Abscess of ear canal Qualified Codes: H60.02 - Abscess of left external ear ER Course Patient with an abscess to the left ear canal. I tried to drain it with ear curette and Q-tip. There was small amount of drainage using the Q-tip. Patient tolerated procedure with some pain. No evidence of mastoiditis. We'll put her on oral antibiotics also. No evidence of otitis media. No perforation. Last Vital Signs Date Time Temp Pulse Resp B/P (MAP) Pulse Ox O2 Delivery O2 Flow Rate FiO2 05/16/18 22:33 97.9 66 16 141/86 97 Room Air Status: improved Disposition: HOME, SELF-CARE Condition: Stable Scripts Hydrocodone/Acetaminophen 5-325* (HYDROCODONE/ACETAMINOPHEN 5-325*) 1 Each Tablet 1 TAB ORAL Q6H PRN for For Pain, #15 TAB 0 Refills Prov: Gurpreet Rivera MD 05/16/18 Trimethoprim/Sulfamethoxazole 160/800* (BACTRIM DS TABLET*) 1 Each Tablet 1 TAB ORAL Q12H, #14 TAB 0 Refills Prov: Gurpreet Rivera MD 05/16/18 Additional Instructions: Follow-up in 2-3 days for recheck. Follow-up with your for referral to see ENT doctor. Return if worse. Gurpreet Rivera MD May 16, 2018 23:22
[2018-05-16 23:30] VITALS: BP 136/72
[2018-05-16 23:37] VITALS: BP 136/72
== END 2018-05-16 23:35 | disposition home or self-care (01) ==
LOC: EMR 23:00
DX: H60.02 Abscess of left external ear (principal)
CPT/HCPCS: 96372; 99283; J2270